=== PATIENT | female | born 1990 | race Two or more races ===

== ENCOUNTER → 2021-05-16 | Outpatient (BNVA) | payer MEDICAID, SELFPAY | END | disposition home or self-care (01) | PROVIDERS: PCP Internal Medicine; Visit Provider Urology | DX: I10 Essential (primary) hypertension (principal) ==

== ENCOUNTER → 2024-11-23 | Outpatient (CLI) | payer MEDICAID, SELFPAY ==
--- NOTE | 2024-11-23 14:19 | XR_ITS ---
Examination: Shoulder,right, 3 views Technique: Shoulder AP internal rotation, AP external rotation, Y view shoulder, 3 views Exam date and time :November 23, 2024 1443 hours INDICATIONS: Right shoulder pain post injury 2 days ago. FINDINGS: No right shoulder fracture or dislocation No AC joint separation No opaque foreign body IMPRESSION: No shoulder fracture or dislocation
--- NOTE | 2024-11-23 14:19 | XR_ITS ---
Examination: Hand, right 3 views Technique: Hand AP, oblique, lateral 3 views Date and time of exam: November 23, 2024 1443 hours INDICATIONS: Injury to the hand 2 days ago with hand pain. FINDINGS: No acute fracture No dislocation No opaque colon body IMPRESSION: No acute fracture
== END | disposition home or self-care (01) ==
PROVIDERS: PCP Physician Assistant Medical; Referring Provider Physician Assistant Medical; Visit Provider Physician Assistant Medical
DX: S69.91XA Unspecified injury of right wrist, hand and finger(s), initial encounter (principal); X58.XXXA Exposure to other specified factors, initial encounter
CPT/HCPCS: 73030; 73130

== ENCOUNTER 2025-05-12 21:10 | Emergency (ER) | payer MEDICAID, SELFPAY ==
[2025-05-12 21:12] VITALS: BMI 52.0
[2025-05-12 22:06] VITALS: BP 128/83; PULSE 84; RESP 18; TEMP 36.9; O2SAT 97
--- NOTE | 2025-05-12 22:06 | EDRME_ITS ---
Rapid Medical Screening Exam RME Arrival date/time: 05/12/25 21:10 Chief Complaint: Abdominal Pain Time Seen by Provider: 05/12/25 21:30 Vital signs: Vital Signs Temperature 98.4 F 05/12/25 22:06 Pulse Rate 84 05/12/25 22:06 Respiratory Rate 18 05/12/25 22:06 Blood Pressure 128/83 05/12/25 22:06 Pulse Oximetry (%) 97 05/12/25 22:06 Oxygen Delivery Method Room Air 05/12/25 22:06 [facility] Narrative: n/v, epigastric pain since yesterday. hx gastric sleeve 2 weeks ago, surgery in [place].
[2025-05-12 22:19] LABS: Basophils # (Auto) 0.1 Thou/mm3 (0.0-0.2); Basophils % (Auto) 1 % (0-2.5); Eosinophils # (Auto) 0.6 Thou/mm3 (0.0-0.5); Eosinophils % (Auto) 8 % (0-10); Hematocrit 37.8 % (36.0-46.0); Hemoglobin 13.6 g/dL (12.0-16.0); Immature Granulocytes % (Auto) 0 % (0-0); Immature Granulocytes Auto 0.01 Thou/mm3 (0.00-0.00); Lymphocytes # (Auto) 2.9 Thou/mm3 (1.0-4.8); Lymphocytes % (Auto) 35 % (10-50); Mean Corpuscular Hemoglobin 29.6 pg (25.0-35.0); Mean Corpuscular Volume 82 fL (80-100); Monocytes # (Auto) 0.6 Thou/mm3 (0.0-0.8); Monocytes % (Auto) 7 % (0-12); Neutrophils % (Auto) 49 % (37-80); Nucleated Red Blood Cell % 0 /100 WBC (0); Platelet Count 311 Thou/mm3 (140-440); RDW Standard Deviation 38.8 fL (36.4-46.3); Red Blood Count 4.59 Miln/mm3 (4.00-5.20); White Blood Count 8.1 Thou/mm3 (3.6-11.0)
[2025-05-12] MEDS: ONDANSETRON ODT 4 MG TABRAP PO (22:24)
--- NOTE | 2025-05-12 22:29 | XR_ITS ---
Examination: CT abdomen with intravenous contrast CT pelvis with intravenous contrast 2-D coronal reconstructions 2-D sagittal reconstructions Date and time of exam:May 13, 2025, 0158 hours Comparison May 21, 2024 INDICATIONS: Onset epigastric pain today. CTDI: vol (mGy) 26 DLP: (mGycm) 1565 Technique: Multiple axial sections of the abdomen and pelvis have been obtained. 64 slice high-resolution scanner used. 3 mm axial sections have been obtained, post intravenous injection 60 cc Isovue 370 2-D sagittal, coronal reconstructions obtained. Low dose protocols were performed. One or more of the following dose reduction techniques were used; automated exposure control, adjustment of the mA and/or KV according to patient size, use of iterative reconstruction technique. Findings: No focal liver or splenic lesion Absent gallbladder Gastric surgery No pancreatic or adrenal mass No renal or ureteral calculi, no hydronephrosis No bowel obstruction Absent appendix Complex right adnexal cystic mass with some septation and internal echoes, measuring at least 5 cm in dimension Contracted urinary bladder IMPRESSION: Complex right adnexal cystic mass with septation and internal echoes, recommend pelvic sonography follow-up
[2025-05-12 22:40] LABS: Collection Type, Urine Clean Catch
[2025-05-12 22:44] LABS: Alanine Aminotransferase 41 U/L (10-49); Albumin, Serum 4.8 gm/dL (3.5-5.0); Albumin/Globulin Ratio 1.8 (1.2-2.2); Alkaline Phosphatase 90 U/L (46-116); Anion Gap 7 (7-16); Aspartate Amino Transferase 29 U/L (0-34); BUN/Creatinine Ratio 11 Ratio (12-20); Bilirubin,Total 0.4 mg/dL (0.3-1.2); Blood Urea Nitrogen 9 mg/dL (9-23); Calcium 10.1 mg/dL (8.3-10.6); Calcium (Corrected) 10.1 mg/dL (8.5-10.1); Carbon Dioxide 26.6 mMol/L (20.0-31.0); Chloride 104 mMol/L (98-107); Creatinine (Component) 0.8 mg/dL (0.6-1.3); Estimated Creatinine Clearance 125.2 mL/min (>60); Globulin 2.7 gm/dL (2.3-3.5); Glucose 94 mg/dL (74-106); Lipase 52 U/L (12-53); Osmolality,Calculated 274 (275-295); Potassium 3.4 mMol/L (3.4-5.1); Sodium 138 mMol/L (136-145); Total Protein 7.5 gm/dL (5.7-8.2); eGFR > 60 See Note
[2025-05-12 22:49] LABS: HCG Qualitative,Urine Negative
[2025-05-12 23:00] LABS: Bilirubin,Urine 1+ (Negative); Blood,Urine Trace (Negative); Calcium Oxalate Crystals,Urine 4+; Clarity,Urine Turbid (Clear/Hazy); Color,Urine Yellow (Lt Yel-Yel); Glucose, Urine Negative (Negative); Ketones,Urine 1+ (Negative); Leukocyte Esterase,Urine Positive (Negative); Nitrite,Urine Negative (Negative); Protein,Urine 1+ (Neg - Trace); RBC,Urine 15 /hpf (0-3); Specific Gravity,Urine 1.034 (1.001-1.035); Squamous Epithelial Cell,Urine 74 /hpf (0-5); WBC,Urine 20 /hpf (0-5)
--- NOTE | 2025-05-13 03:10 | PRELIM_ITS ---
CT scan of the abdomen and pelvis with intravenous contrast (axial sections with sagittal and coronal reformats) May 13, 2025 0158 hours Clinical History: Epigastric pain Comparison: No prior study available for comparison at the time of interpretation. Findings: There is mild fatty infiltration of the liver. The gallbladder is surgically absent. The spleen, adrenals and pancreas are unremarkable. There is no peripancreatic collection. There is no hydronephrosis. Gastric sleeve surgery changes are noted. There is mild fat stranding along the surgical sleeve without loculated fluid collection. There is no bowel obstruction. The appendix is surgically absent. There are occasional colonic diverticula without evidence of diverticulitis. The urinary bladder is partially distended and shows mild wall thickening; possibility of cystitis cannot be excluded. The uterus is unremarkable. There is a complex tubular cystic structure in the right adnexa, measuring 2.5 cm in maximum thickness. Small left ovarian follicles are seen. There is a trace free fluid in the pelvis. No definite free air. The aorta is unremarkable. Mild/early degenerative changes are seen in the spine. Mild heterogeneous attenuation is seen in the visualized lung bases. A few small subpleural nodular infiltrates are seen at the left lung base (axial image 35/278). Please note that evaluation of bowel loops is limited due to absence of oral contrast. Impression: 1. No evidence of acute pancreatitis. 2. Gastric sleeve surgery with mild fat stranding along the sleeve without loculated fluid collection. 3. Complex tubular right adnexal cystic structure, which may represent hydrosalpinx or complex cyst. Recommended clinical correlation and further evaluation with ultrasound has indicated. 4. Partially distended urinary bladder with mild wall thickening; possibility of cystitis cannot be excluded. 5. Other findings as described above. Suggest clinical correlation and follow up accordingly. Report Electronically Signed By: Warren Ford 05/13/2025 3:10:33 AM [EST]
--- NOTE | 2025-05-13 04:02 | PD.EDABDPN ---
ED Abdominal Pain RME/HPI General Chief Complaint: Abdominal Pain Stated complaint: EPIGASTRIC PAIN Time seen by provider: 05/12/25 21:30 Arrival date/time: 05/12/25 21:10 RME / HPI RME / HPI narrative: n/v, epigastric pain since yesterday. hx gastric sleeve 2 weeks ago, surgery in [place]. DR ASTUDILLO MAIN ED EVALUATION: 34 y/o female with Hx of Gall Bladder Disease, Gastroesophageal Reflux Disease, Kidney Stones and Obesity presents to ED c/o constant epigastric abdominal pain that radiates to the back, nausea, and vomiting x 2 days. Vomit is green and was told it may be bile. She reports the pain is similar to that of heartburn but much worse. Patient had a gastric sleeve surgery 2 weeks ago. She just completed her antibiotics on Wednesday, but is having issues keeping down the Tylenol and Omeprazole. Patient denies fever or any other associated symptoms or aggravating factors. No modifying factors, no radiation, no migration. No pain reported overall. Related Data Home Medications ?Medication ?Instructions ?Recorded ?Confirmed semaglutide 1 mg/dose (4 mg/3 mL) 1 mg subcut QWEEK 08/26/23 08/26/23 subcutaneous pen injector (Ozempic) Previous Rx's ?Medication ?Instructions ?Recorded hydrocodone 5 mg-acetaminophen 325 1 tab PO Q6H PRN pain #20 tabs 05/22/24 mg tablet ibuprofen 800 mg tablet 800 mg PO TID PRN pain #30 tabs 07/20/24 ondansetron 4 mg disintegrating 4 mg PO Q8H PRN nausea and 05/13/25 tablet vomiting #14 tabs sucralfate 100 mg/mL oral 10 ml PO TID PRN acid reflux #473 05/13/25 suspension (Carafate) mL Allergies Allergy/AdvReac Type Severity Reaction Status Date / Time cephalexin AdvReac Intermediate Anaphylaxis Verified 05/12/25 21:11 Review of Systems Review of Systems Systems Reviewed: All systems reviewed, normal except as documented Past Medical History Past Medical History NEUROLOGIC: Positive Neurological Disorders and Migraine CARDIAC: Positive Cardiac Disorders and Hypertension GASTROINTESTINAL: Positive Gastrointestinal Disorders, Gall Bladder Disease, Gastroesophageal Reflux Disease and Obesity GENITOURINARY: Positive Genitourinary Disorders and Kidney Stones REPRODUCTIVE: Positive Previous Pregnancies MUSCULOSKELETAL: Positive Musculoskeletal Disorders and Degenerative Disk Disease ENDOCRINE: Positive Endocrine Disorders and Diabetes Mellitus Type 2 HEMATOLOGIC: Positive Anemia PSYCHO/SOCIAL: Positive Anxiety OTHER HISTORY: Positive Hospitalization and Chicken Pox Family History FAMILY HISTORY: Positive Family Cardiac Disorders and Family Surgery Surgical History SURGICAL: Positive Tubal Ligation ED Exam Narrative Physical exam: GENERAL APPEARANCE: alert and oriented x 4, well-developed, well-nourished, no acute distress VITALS: All vitals were reviewed and the pulse ox is 97% on room air, which is normal according to my interpretation. HEENT: Normocephalic, atraumatic; pupils equal, round, reactive to light; EOMI; mucous membranes pink, moist; oropharynx clear NECK: Supple LUNGS: CTABL; no wheezes, no rales, no rhonchi HEART: Regular rate, regular rhythm; normal S1, S2; no murmurs ABDOMEN: non distended; normal BS; soft, mild epigastric tenderness, no guarding, no rebound; no masses, no organomegaly, no hernia BACK: no CVA tenderness EXTREMITIES: atraumatic; no edema NEUROLOGIC: awake; alert and oriented x4; cranial nerves II-XII grossly intact; no focal sensory or motor deficits PSYCHIATRIC: appropriate mood and affect SKIN: warm, dry, normal color; no rashes Course Quality Measures none Orders Category Date Time Status CT Screening NOW Care 05/12/25 22:[address] abdomen pelvis w con Stat Exams 05/12/25 22:29 Taken CBC Stat Lab 05/12/25 22:13 Completed CMP [Comprehensive Metabolic Panel] Stat Lab 05/12/25 22:13 Completed HCG Qualitative,Urine Stat Lab 05/12/25 22:18 Completed Lipase Stat Lab 05/12/25 22:13 Completed UA [Urinalysis] Stat Lab 05/12/25 22:18 Completed Lidocaine 2% Viscous [Xylocaine 2% Viscous] Med 05/13/25 03:30 Discontinued 15 ml PO X1 ONE Ondansetron Odt [Zofran Odt] Med 05/12/25 22:05 Discontinued 4 mg PO X1 ONE Ondansetron Odt [Zofran Odt] Med 05/13/25 03:30 Discontinued 4 mg PO X1 ONE mg Hyd/Al Hyd/Bartolome Susp [Maalox Susp] Med 05/13/25 03:30 Discontinued 30 ml PO X1 ONE Vital Signs Vital signs: Vital Signs Temperature 98.4 F 05/12/25 22:06 Pulse Rate 84 05/12/25 22:06 Respiratory Rate 18 05/12/25 22:06 Blood Pressure 128/83 05/12/25 22:06 Pulse Oximetry (%) 97 05/12/25 22:06 Oxygen Delivery Method Room Air 05/12/25 22:06 Abdominal Pain MDM MDM Narrative MDM Narrative:: Scribe Attestation: Collette Franco, joshua scribing for and in the presence of Dr. Astudillo. Provider Notation: Although this document has been carefully reviewed, there may still be some phonetic and other typographical errors.? These errors are purely grammatical due to imperfections in the software program and should not be construed in any way to? compromise the substance of the patient's medical care during this visit. Patient data External records reviewed:: [facility] previous records (Reviewed prior ED records from 07/20/24. Patient was seen for Pelvic pain.) Clinical information provided by:: patient Social determinants that could affect healthcare access:: none Patient has the following chronic illnesses:: Migraine, Hypertension, Gall Bladder Disease, Gastroesophageal Reflux Disease, Obesity, Kidney Stones, Degenerative Disk Disease, Diabetes Mellitus Type 2, Anemia, Anxiety How is presenting disease/condition affected by chronic disease/condition?: exacerbated by Evaluation data The following diagnostics were reviewed and interpreted by me:: lab results and radiology exam(s) Lab and/or radiology exams considered but not ordered:: None Interpretation Summary: RADIOLOGY Abdomen/Pelvis CT: [facility] [address] [place] [address] [employer] Preliminary Report Draft Patient: AKHIL JAFFE. Record#: [id number] Birthdate: 1990 Age/Sex: 34 / F Location: [facility] Attending Dr: Ordering Physician: Date of Service: Procedure(s): Accession Number(s): CT scan of the abdomen and pelvis with intravenous contrast (axial sections with sagittal and coronal reformats) May 13, 2025 0158 hours Clinical History: Epigastric pain Comparison: No prior study available for comparison at the time of interpretation. Findings: There is mild fatty infiltration of the liver. The gallbladder is surgically absent. The spleen, adrenals and pancreas are unremarkable. There is no peripancreatic collection. There is no hydronephrosis. Gastric sleeve surgery changes are noted. There is mild fat stranding along the surgical sleeve without loculated fluid collection. There is no bowel obstruction. The appendix is surgically absent. There are occasional colonic diverticula without evidence of diverticulitis. The urinary bladder is partially distended and shows mild wall thickening; possibility of cystitis cannot be excluded. The uterus is unremarkable. There is a complex tubular cystic structure in the right adnexa, measuring 2.5 cm in maximum thickness. Small left ovarian follicles are seen. There is a trace free fluid in the pelvis. No definite free air. The aorta is unremarkable. Mild/early degenerative changes are seen in the spine. Mild heterogeneous attenuation is seen in the visualized lung bases. A few small subpleural nodular infiltrates are seen at the left lung base (axial image 35/278). Please note that evaluation of bowel loops is limited due to absence of oral contrast. Impression: 1. No evidence of acute pancreatitis. 2. Gastric sleeve surgery with mild fat stranding along the sleeve without loculated fluid collection. 3. Complex tubular right adnexal cystic structure, which may represent hydrosalpinx or complex cyst. Recommended clinical correlation and further evaluation with ultrasound has indicated. 4. Partially distended urinary bladder with mild wall thickening; possibility of cystitis cannot be excluded. 5. Other findings as described above. Suggest clinical correlation and follow up accordingly. Report Electronically Signed By: Warren Ford 05/13/2025 3:10:33 AM [EST] Medications / Prescriptions Medications or Prescriptions considered but not ordered:: None Medication administrations:: Medication Administration History Discontinued Medications Al Hydrox/Mg Hydrox/Simethicone (Mg Hyd/Al Hyd/Bartolome (Maalox Reg) Susp 30 Ml Udc) 30 ml PO X1 ONE Stop: 05/13/25 03:31 Last Admin: 05/13/25 04:08 Dose: 30 ml Documented By: CVL Lidocaine HCl (Lidocaine Viscous 2% 15 Ml Udc) 15 ml PO X1 ONE Stop: 05/13/25 03:31 Last Admin: 05/13/25 04:08 Dose: 15 ml Documented By: CVL Ondansetron HCl (Ondansetron Odt 4 Mg Tabrap) 4 mg PO X1 ONE; Protocol Stop: 05/12/25 22:06 Last Admin: 05/12/25 22:24 Dose: 4 mg Documented By: CVL Ondansetron HCl (Ondansetron Odt 4 Mg Tabrap) 4 mg PO X1 ONE; Protocol Stop: 05/13/25 03:31 Last Admin: 05/13/25 04:08 Dose: 4 mg Documented By: CVL See above Consultations Consultation(s) initiated? (list below): No Diagnosis Differential diagnosis abdominal pain: abdominal pain, calculus of kidney, constipation, diverticulitis, gastroenteritis, pancreatitis and small bowel obstruction Most likely diagnosis given after review of the tests above:: GERD Admission Indicated Admission indicated?: not indicated Explain why admission is indicated or not indicated:: Patient does not meet admission criteria. Admission Request Was there a request for admission?: No Disposition Plan Disposition Plan: Discharge Discharge Attestation Discharge Attestation: The patient and all family members were given an opportunity to ask questions and understood the discharge instructions. Discharge instructions specifically effects, indications for sooner follow up or return to the emergency department, and the expected course of current diagnosis. Patient condition: Stable Discharge Plan Plan Patient Disposition: HOME (Self Care) Prescriptions/Referrals Prescriptions/Med Rec: New sucralfate [Carafate] 100 mg/mL suspension 10 ml PO TID PRN (Reason: acid reflux) Qty: 473 0RF ondansetron 4 mg tablet,disintegrating 4 mg PO Q8H PRN (Reason: nausea and vomiting) Qty: 14 0RF No Action hydrocodone-acetaminophen 5-325 mg tablet 1 tab PO Q6H MDD 4 PRN (Reason: pain) Qty: 20 0RF Ozempic 1 mg/dose (4 mg/3 mL) Pen Injector 1 mg SUBCUT QWEEK ibuprofen 800 mg tablet 800 mg PO TID PRN (Reason: pain) Qty: 30 0RF Referrals: Heather Guerin FNP [Primary Care Provider] - In 1 week Problem List Clinical Impression: Gastro-esophageal reflux Patient/Caregiver Discharge Instructions Education Materials: ED GERD (Adult) Print Language: German Stand Alone Forms: Rachel Award Info., Patient Portal Info Letter
[2025-05-13] MEDS: MG HYD/AL HYD/SIME (Maalox Reg) SUSP 30 ML UDC PO (04:08)
[2025-05-13] MEDS: ONDANSETRON ODT 4 MG TABRAP PO (04:08)
[2025-05-13] MEDS: LIDOCAINE VISCOUS 2% 15 ML UDC PO (04:08)
[2025-05-13 04:29] VITALS: RESP 16
== END 2025-05-13 04:30 | disposition home or self-care (01) ==
PROVIDERS: Physician Assistant; Emergency Provider Emergency Medicine; PCP Nurse Practitioner
DX: K21.9 Gastro-esophageal reflux disease without esophagitis (principal); N32.89 Other specified disorders of bladder; N83.201 Unspecified ovarian cyst, right side; Z68.43 Body mass index [BMI] 50.0-59.9, adult; E66.9 Obesity, unspecified
CPT/HCPCS: 36415; 74177; 80053; 81001; 81025; 83690; 85025; 99285; A4649; J3490; Q0162; Q9967; A9270

== ENCOUNTER 2025-07-03 08:39 | Emergency (ER) | payer MEDICAID, SELFPAY ==
--- NOTE | 2025-07-03 08:59 | XR_ITS ---
Examination: Pelvic ultrasound, transabdominal, complete Technique: Transabdominal ultrasound of the pelvis performed using grayscale imaging Date and time of exam: July 03, 2025 1003 hours INDICATIONS: Right lower abdominal pain beginning 2 days ago FINDINGS: Uterus 8.6 cm, small cyst which may represent a gestational sac 1.3 cm in the endometrium corresponding to 6 weeks 1 day gestational age No pole, no cardiac activity Right ovary 3.6 cm arterial flow Left ovary 2.3 cm arterial flow IMPRESSION: Recommend transvaginal pelvic sonography follow-up to confirm intrauterine gestational sac and assess for pole
[2025-07-03 09:05] VITALS: BP 123/72; PULSE 66; RESP 18; TEMP 36.6; O2SAT 97; BMI 47.6
--- NOTE | 2025-07-03 09:07 | PD.EDABDPN ---
ED Abdominal Pain RME/HPI General Chief Complaint: Abdominal Pain Stated complaint: Right side abdominal pain, nausea Time seen by provider: 07/03/25 08:48 Arrival date/time: 07/03/25 08:39 34-year-old female presents to the Emergency Department today for complaint of right sided pelvic pain patient worse going on for last couple of days patient reports history of ovarian cyst cholecystectomy gastric bypass Limitations: no limitations Related Data Home Medications ?Medication ?Instructions ?Recorded ?Confirmed semaglutide 1 mg/dose (4 mg/3 mL) 1 mg subcut QWEEK 08/26/23 08/26/23 subcutaneous pen injector (Ozempic) Previous Rx's ?Medication ?Instructions ?Recorded hydrocodone 5 mg-acetaminophen 325 1 tab PO Q6H PRN pain #20 tabs 05/22/24 mg tablet ibuprofen 800 mg tablet 800 mg PO TID PRN pain #30 tabs 07/20/24 ondansetron 4 mg disintegrating 4 mg PO Q8H PRN nausea and 05/13/25 tablet vomiting #14 tabs sucralfate 100 mg/mL oral 10 ml PO TID PRN acid reflux #473 05/13/25 suspension (Carafate) mL ciprofloxacin HCl 500 mg tablet 500 mg PO BID 7 days #14 tabs 07/03/25 hydrocodone 5 mg-acetaminophen 325 1 tab PO BID PRN pain #10 tabs 07/03/25 mg tablet Allergies Allergy/AdvReac Type Severity Reaction Status Date / Time cephalexin AdvReac Intermediate Anaphylaxis Verified 07/03/25 08:44 Review of Systems Review of Systems Systems Reviewed: All systems reviewed, normal except as documented Constitutional Constitutional: Reports system reviewed and no additional complaints, except as documented, Denies fever(s) and Denies headache(s) Eyes Eyes: Reports system reviewed and no additional complaints, except as documented and Denies blurry vision ENT Ears, Nose, Mouth, and Throat: Reports system reviewed and no additional complaints, except as documented, Denies headache(s), Denies nasal congestion and Denies nasal discharge Cardiovascular Cardiovascular: Reports system reviewed and no additional complaints, except as documented, Denies chest pain and Denies dyspnea Respiratory Respiratory: Reports system reviewed and no additional complaints, except as documented, Denies chest congestion, Denies cough and Denies dyspnea Gastrointestinal Gastrointestinal: Reports system reviewed and no additional complaints, except as documented and Denies abdominal pain Genitourinary Genitourinary: Reports system reviewed and no additional complaints, except as documented and Reports other (Right side pelvic pain) Integumentary/Breasts Skin/Breast: Reports system reviewed and no additional complaints, except as documented and Denies rash Neurologic Neurologic: Reports system reviewed and no additional complaints, except as documented, Reports as per HPI and Denies headache(s) Past Medical History Past Medical History NEUROLOGIC: Positive Neurological Disorders and Migraine; Negative Cerebrovascular Accident, Transient Ischemic Attacks (TIA), Dementia, Alzheimer's Disease, Parkinson's Disease, Brain Tumor, Meningitis, Seizures, Epilepsy, Multiple Sclerosis, Cerebral Palsy, Amyotrophic Lateral Sclerosis (ALS/Gisela Gehrig's), Guillain-[place] Syndrome, Spina Bifida, Paralysis, Peripheral Neuropathy, Doss's Palsy, Subdural Hematoma, Head Trauma, Spinal Cord Injury or Traumatic Brain Injury CARDIAC: Positive Cardiac Disorders and Hypertension; Negative Myocardial Infarction, Cardiac Arrhythmia, Atrial Fibrillation, Angina, Heart Murmur, Coronary Artery Disease, Atherosclerotic Heart Disease, Peripheral Vascular Disease, Hypercholesterolemia, Aneurysm, Congestive Heart Failure, Congenital Heart Disease, Valvular Heart Disease, Rheumatic Fever, Cardiomyopathy, Edema, Pericarditis, Cellulitis, Deep Vein Thrombosis, Hypotension or Varicose Veins RESPIRATORY: Negative Chronic Obstructive Pulmonary Disease (COPD), Asthma, Bronchitis, Emphysema, Pneumonia, Pulmonary Fibrosis, Cystic Fibrosis, Tuberculosis, Pulmonary Embolism, Pulmonary Edema or Sleep Apnea GASTROINTESTINAL: Positive Gastrointestinal Disorders, Gall Bladder Disease, Gastroesophageal Reflux Disease and Obesity; Negative Hepatitis, Cirrhosis, Pancreatitis, Celiac Disease, Gastrointestinal Bleed, Esophageal Varices, Womack's Esophagus, Colitis, Ulcerative Colitis, Diverticulitis, Diverticulosis, Ulcer, Colorectal Cancer, Irritable Bowel, Crohn's Disease, Obstructive Bowel, Hiatal Hernia or Hemorrhoids GENITOURINARY: Positive Genitourinary Disorders and Kidney Stones; Negative Renal Disease, Polycystic Kidney Disease, Neurogenic Bladder, Inguinal Hernia, Dialysis, Prostate Cancer or Benign Prostatic Hyperplasia REPRODUCTIVE: Positive Previous Pregnancies; Negative Breast Cancer, Endometriosis, Genital Herpes, Gonorrhea, Pelvic Inflammatory Disease, Syphilis, Testicular Cancer or Uterine Prolapse MUSCULOSKELETAL: Positive Musculoskeletal Disorders and Degenerative Disk Disease; Negative Muscular Dystrophy, Myasthenia Gravis, Marfan's Syndrome, Bone Cancer, Arthritis, Rheumatoid Arthritis, Osteoporosis, Gout, Scoliosis, Carpal Tunnel Syndrome, Fibromyalgia, Fractures, Degenerative Joint Disease, Osteomyelitis or Poliovirus ENT: Negative Cataracts, Glaucoma, Blind, Retinal Detachment, Macular Degeneration, Ear Infection, Deafness, Head Trauma or Eye Prosthesis ENDOCRINE: Positive Endocrine Disorders and Diabetes Mellitus Type 2; Negative Diabetes Mellitus Type 1, Hypoglycemia, Reginald's Disease, Hyperthyroidism, Hypothyroidism, Parathyroid Disease, Pituitary Disease, Systemic Lupus Erythematosus, Syndrome of Inappropriate Antidiuretic Hormone (SIADH), Adrenal Disease or Graves' Disease HEMATOLOGIC: Positive Anemia; Negative Blood Disorders, Leukemia, Hemophilia, Thalassemia, Sickle Cell Disease or Clotting Problems PSYCHO/SOCIAL: Positive Anxiety; Negative Psychiatric Problems, Schizophrenia, Recreational Drug Use, Bipolar Disorder, Depression, Behavior Problems, Self-Mutilation, Attention Deficit Disorder, Attention Deficit Hyperactivity Disorder, Depression, Post Traumatic Stress Disorder or Eating Disorder OTHER HISTORY: Positive Hospitalization and Chicken Pox; Negative Autoimmune Disease, Down Syndrome, Autism, Developmental Delay, Shingles, Falls, Blood Transfusions, Blood Transfusion Reaction, Anesthesia Reactions, Organ Transplant, Chemotherapy, Radiation Therapy, Hyperbaric Therapy, MRSA, VRSA, Vancomycin-Resistant Enterococci, Human Immunodeficiency Virus (HIV), Measles, Mumps, Rubella ([place] Measles), Pertussis, Clostridium Difficile, Cancer, Breast Cancer, Cervical Cancer, Colorectal Cancer, Lung Cancer, Ovarian Cancer, Prostate Cancer or Testicular Cancer Family History FAMILY HISTORY: Positive Family Cardiac Disorders and Family Surgery; Negative Family Psychiatric Problems, Family Respiratory Disorders, Family Gastrointestinal Problems, Family Cancer or Family Anesthesia Reaction Surgical History SURGICAL: Positive Abdominal Surgery and Tubal Ligation; Negative Cardiac Surgery, Open Heart Surgery, Coronary Artery Bypass Graft, Valve Replacement, Vascular Surgery, Coronary Stent, Cardiac Catheterization, Pacemaker, Angiogram, Auto Implanted Cardiovert Defib, Carotid Endarterectomy, Endocrine Surgery, Thyroidectomy, Ear Surgery, Tympanostomy Tube, Eye Surgery, Nose Surgery, Oral Surgery, Tonsillectomy, Adenoidectomy, Cochlear Implant, Corneal Transplant, Throat Surgery, Tracheostomy, Gastric Bypass Surgery, Gastrostomy, Bowel Surgery, Nephrectomy, Transurethral Resection, Joint Replacement, Amputation, Open Reduction Internal Fixation, Arthroscopy, Neurologic Surgery, Brain Shunt, Mastectomy, Lumpectomy, Hysterectomy, Section, Vasectomy or Organ Transplant Social History SMOKING STATUS: Never smoker SECOND HAND EXPOSURE: No SUBSTANCE USE: does not use ED Exam General Limitations: Present no limitations General appearance: Present alert and in no apparent distress Head Head exam: Present atraumatic, normocephalic and normal inspection Eye Eye exam: Present normal appearance, PERRL and EOMI; Absent conjunctival injection ENT ENT exam: Present normal exam, normal oropharynx and mucous membranes moist Neck Neck exam: Present normal inspection, full ROM and trachea midline Chest Chest inspection: Present normal inspection and symmetric chest wall rise Respiratory Respiratory exam: Present normal lung sounds bilaterally Cardiovascular Cardiovascular exam: Present regular rate, normal rhythm and normal heart sounds Abdominal Exam Abdominal exam: Present soft and normal bowel sounds; Absent distention, tenderness, guarding, rebound or rigidity Abdominal tenderness: Absent RLQ Extremities Exam Extremities exam: Present normal inspection and full ROM Back Exam Back exam: Present normal inspection and full ROM Neurological Exam Neurological exam: Present alert, oriented X3 and CN II-XII intact Psychiatric Psychiatric exam: Present normal affect and normal mood Skin Skin exam: Present warm, dry, intact and normal color Course Quality Measures none Orders Category Date Time Status US pelvic complete Stat Exams 07/03/25 08:59 Completed US transvaginal Stat Exams 07/03/25 12:42 Completed CBC Stat Lab 07/03/25 09:11 Completed Comprehensive Metabolic Panel Stat Lab 07/03/25 09:11 Completed HCG Qualitative,Urine Stat Lab 07/03/25 10:28 Completed HCG,Qualitative Serum Stat Lab 07/03/25 09:11 Completed Lipase Stat Lab 07/03/25 09:11 Completed UA, C/S IF [Urinalysis, C/S if Indicated] Stat Lab 07/03/25 10:28 Completed HYDROcodone*/APAP 5/325 [[place] 5/325] Med 07/03/25 13:05 Discontinued 1 tab PO X1 ONE Ketorolac Inj [Toradol Inj] Med 07/03/25 15:40 Discontinued 30 mg IM X1 ONE Vital Signs Vital signs: Vital Signs Temperature 97.9 F 07/03/25 09:05 Pulse Rate 66 07/03/25 09:05 Respiratory Rate 18 07/03/25 09:05 Blood Pressure 123/72 07/03/25 09:05 Pulse Oximetry (%) 97 07/03/25 09:05 Oxygen Delivery Method Room Air 07/03/25 09:05 O2 saturation 97% r.a wnl Abdominal Pain MDM MDM Narrative MDM Narrative:: 34-year-old female presents to the Emergency Department today for complaint of right sided pelvic pain patient worse going on for last couple of days patient reports history of ovarian cyst cholecystectomy gastric bypass On exam patient well-appearing patient does not appear ill or toxic no acute distress Exam patient is soft nontender abdomen On exam patient does have mild tenderness to the right pelvic region Lab work and imaging obtained Ultrasound reviewed I discussed the ultrasound findings with Dr. [place] CREDIT CHARGE AUTHORIZER who felt the patient be discharged home on an outpatient basis Patient has 2 negative hCG levels here Patient discharged home in no distress to follow-up with primary care doctor in the next 24 to 48 hours and for any worsening symptoms to return to the ER immediately Patient data External records reviewed:: [facility] previous records Clinical information provided by:: patient Social determinants that could affect healthcare access:: none Patient has the following chronic illnesses:: none How is presenting disease/condition affected by chronic disease/condition?: no chronic disease Evaluation data The following diagnostics were reviewed and interpreted by me:: lab results and radiology exam(s) Lab and/or radiology exams considered but not ordered:: Labs and radiology obtained Interpretation Summary: Reviewed by me Medications / Prescriptions Medications or Prescriptions considered but not ordered:: Given Medication administrations:: Medication Administration History Discontinued Medications Hydrocodone Bitart/Acetaminophen (Hydrocodone/[place] 5/325 Tablet) 1 tab PO X1 ONE Stop: 07/03/25 13:06 Last Admin: 07/03/25 15:29 Dose: 1 tab Documented By: Ketorolac Tromethamine (Ketorolac Inj 30 Mg/Ml Vial) 30 mg IM X1 ONE Stop: 07/03/25 15:41 Last Admin: 07/03/25 15:59 Dose: 30 mg Documented By: Given Consultations Consultation(s) initiated? (list below): Yes Consultation #1 (Physician, Specialty, Details): Dr. Wilson Diagnosis Differential diagnosis abdominal pain: abdominal pain, acute appendicitis, pancreatitis and small bowel obstruction Most likely diagnosis given after review of the tests above:: Pelvic pain ovarian cyst Admission Indicated Admission indicated?: not indicated Admission Request Was there a request for admission?: No Disposition Plan Disposition Plan: Discharge Discharge Attestation Discharge Attestation: The patient and all family members were given an opportunity to ask questions and understood the discharge instructions. Discharge instructions specifically effects, indications for sooner follow up or return to the emergency department, and the expected course of current diagnosis. Patient condition: Stable Discharge Plan Plan Patient Disposition: HOME (Self Care) Discharge Disposition comment: Stable Prescriptions/Referrals Prescriptions/Med Rec: New hydrocodone-acetaminophen 5-325 mg tablet 1 tab PO BID MDD 10 PRN (Reason: pain) Qty: 10 0RF ciprofloxacin HCl 500 mg tablet 500 mg PO BID 7 Days Qty: 14 0RF No Action hydrocodone-acetaminophen 5-325 mg tablet 1 tab PO Q6H MDD 4 PRN (Reason: pain) Qty: 20 0RF Ozempic 1 mg/dose (4 mg/3 mL) Pen Injector 1 mg SUBCUT QWEEK ibuprofen 800 mg tablet 800 mg PO TID PRN (Reason: pain) Qty: 30 0RF sucralfate [Carafate] 100 mg/mL suspension 10 ml PO TID PRN (Reason: acid reflux) Qty: 473 0RF ondansetron 4 mg tablet,disintegrating 4 mg PO Q8H PRN (Reason: nausea and vomiting) Qty: 14 0RF Referrals: Heather Guerin FNP [Primary Care Provider] - 07/05/25 Problem List Clinical Impression: Pelvic pain, UTI (urinary tract infection) Patient/Caregiver Discharge Instructions Education Materials: Medicine for Pain Additional Instructions: Please follow-up with CREDIT CHARGE AUTHORIZER as discussed for worsening symptoms or concerns return immediately Print Language: Bhutanese Stand Alone Forms: Rachel Award Info., Patient Portal Info Letter PA/WOOD BLOCK ARTIST Supervising Physician GADIEL/KIMMY Supervising Physician: Dr. brooks
[2025-07-03 09:29] LABS: Basophils # (Auto) 0.0 Thou/mm3 (0.0-0.2); Basophils % (Auto) 0 % (0-2.5); Eosinophils # (Auto) 0.2 Thou/mm3 (0.0-0.5); Eosinophils % (Auto) 3 % (0-10); Hematocrit 40.1 % (36.0-46.0); Hemoglobin 13.6 g/dL (12.0-16.0); Immature Granulocytes Auto 0.02 Thou/mm3 (0.00-0.00); Lymphocytes # (Auto) 1.5 Thou/mm3 (1.0-4.8); Lymphocytes % (Auto) 26 % (10-50); Mean Corpuscular HGB Conc 33.9 g/dl (31.0-37.0); Mean Corpuscular Hemoglobin 29.8 pg (25.0-35.0); Mean Corpuscular Volume 88 fL (80-100); Monocytes # (Auto) 0.3 Thou/mm3 (0.0-0.8); Monocytes % (Auto) 6 % (0-12); Neutrophils # (Auto) 3.7 Thou/mm3 (1.8-7.7); Neutrophils % (Auto) 64 % (37-80); Nucleated Red Blood Cell # 0.00 Thou/mm3 (0.00-0.00); Nucleated Red Blood Cell % 0 /100 WBC (0); Platelet Count 252 Thou/mm3 (140-440); RDW Standard Deviation 42.9 fL (36.4-46.3); Red Blood Count 4.56 Miln/mm3 (4.00-5.20); White Blood Count 5.8 Thou/mm3 (3.6-11.0)
[2025-07-03 09:48] LABS: Alanine Aminotransferase 34 U/L (10-49); Albumin, Serum 4.7 gm/dL (3.5-5.0); Albumin/Globulin Ratio 1.8 (1.2-2.2); Alkaline Phosphatase 106 U/L (46-116); Anion Gap 9 (7-16); Aspartate Amino Transferase 29 U/L (0-34); BUN/Creatinine Ratio 8 Ratio (12-20); Bilirubin,Total 1.0 mg/dL (0.3-1.2); Blood Urea Nitrogen 5 mg/dL (9-23); Calcium 10.0 mg/dL (8.3-10.6); Calcium (Corrected) 10.0 mg/dL (8.5-10.1); Carbon Dioxide 25.2 mMol/L (20.0-31.0); Chloride 108 mMol/L (98-107); Creatinine (Component) 0.6 mg/dL (0.6-1.3); Estimated Creatinine Clearance 158.1 mL/min (>60); Globulin 2.6 gm/dL (2.3-3.5); Glucose 95 mg/dL (74-106); Lipase 25 U/L (12-53); Osmolality,Calculated 280 (275-295); Potassium 3.9 mMol/L (3.4-5.1); Sodium 142 mMol/L (136-145); Total Protein 7.3 gm/dL (5.7-8.2); eGFR > 60 See Note
[2025-07-03 10:44] LABS: Collection Type, Urine Clean Catch
[2025-07-03 10:51] LABS: HCG Qualitative,Urine Negative
[2025-07-03 10:57] LABS: Amorphous Crystals,Urine Present (Absent); Bacteria,Urine 1+; Bilirubin,Urine Negative (Negative); Blood,Urine 2+ (Negative); Color,Urine Yellow (Lt Yel-Yel); Culture Indicated,Urine Contaminated; Glucose, Urine Negative (Negative); Hyaline Casts,Urine < 1 /hpf (0-1); Ketones,Urine Negative (Negative); Leukocyte Esterase,Urine Positive (Negative); Nitrite,Urine Negative (Negative); PH,Urine 6.0 (5.0-7.0); Protein,Urine 1+ (Neg - Trace); RBC,Urine 6 /hpf (0-3); Specific Gravity,Urine 1.039 (1.001-1.035); Squamous Epithelial Cell,Urine 23 /hpf (0-5); Urobilinogen,Urine 2.0 mg/dL (0.0-1.0); WBC,Urine 49 /hpf (0-5)
[2025-07-03 11:21] LABS: Clarity,Urine Hazy (Clear/Hazy)
--- NOTE | 2025-07-03 12:42 | XR_ITS ---
Examination: Transvaginal ultrasound of the pelvis, complete Technique: Transvaginal sonographic images pelvis performed using varma scale imaging Exam date and time: July 03, 2025 1301 hours INDICATIONS: Pelvic pain right lower abdominal pain beginning 2 days ago, ultrasound July 03, 2025 1003 AM empty intrauterine gestational sac. FINDINGS: Uterus 7.7 cm, free fluid with debris is described by the technologist in the endometrium, I would favor intrauterine gestational sac measuring 10 mm Right ovary 2.9 cm arterial flow 19 mm cyst which may represent a corpus sodium cyst Left ovary 2.5 cm arterial flow 12 mm cyst with septation IMPRESSION: Findings remain suspicious for empty intrauterine gestational sac, recommend continued short-term follow-up transvaginal pelvic sonography
[2025-07-03 15:03] LABS: HCG,Qualitative Serum Negative
[2025-07-03] MEDS: HYDROcodone/APAP 5/325 TABLET 1 TAB PO (15:29)
[2025-07-03] MEDS: KETOROLAC INJ 30 MG/ML VIAL IM (15:59)
== END 2025-07-03 16:20 | disposition home or self-care (01) ==
PROVIDERS: Nurse Practitioner Primary Care; Emergency Provider Family Medicine; PCP Nurse Practitioner
DX: N39.0 Urinary tract infection, site not specified (principal); Z98.84 Bariatric surgery status
CPT/HCPCS: 36415; 76830; 76856; 80053; 81001; 81025; 83690; 84703; 85025; 96372; 99283; J1885; A9270

== ENCOUNTER 2025-07-05 02:26 | Inpatient (IN) | payer MEDICAID, SELFPAY ==
[2025-07-05] VITALS (9 sets, daily range): BP systolic 104–127; BP diastolic 56–90; PULSE 52–74; RESP 16–19; TEMP 36.2–36.6; O2SAT 95–97; BMI 47.6; BMI 48.5
--- NOTE | 2025-07-05 02:35 | PD.EDABDPN ---
ED Abdominal Pain RME/HPI General Chief Complaint: Abdominal Pain Stated complaint: Abdominal pain/Dx Cyst worsening pain Time seen by provider: 07/05/25 02:51 Arrival date/time: 07/05/25 02:26 RME / HPI RME / HPI narrative: See MDM for HPI documentation Related Data Home Medications ?Medication ?Instructions ?Recorded ?Confirmed semaglutide 1 mg/dose (4 mg/3 mL) 1 mg subcut QWEEK 08/26/23 07/05/25 subcutaneous pen injector (Ozempic) Previous Rx's ?Medication ?Instructions ?Recorded hydrocodone 5 mg-acetaminophen 325 1 tab PO Q6H PRN pain #20 tabs 05/22/24 mg tablet ibuprofen 800 mg tablet 800 mg PO TID PRN pain #30 tabs 07/20/24 ondansetron 4 mg disintegrating 4 mg PO Q8H PRN nausea and 05/13/25 tablet vomiting #14 tabs sucralfate 100 mg/mL oral 10 ml PO TID PRN acid reflux #473 05/13/25 suspension (Carafate) mL ciprofloxacin HCl 500 mg tablet 500 mg PO BID 7 days #14 tabs 07/03/25 hydrocodone 5 mg-acetaminophen 325 1 tab PO BID PRN pain #10 tabs 07/03/25 mg tablet acetaminophen 300 mg-codeine 30 mg 2 tab PO Q8H PRN pain #20 tabs 07/05/25 tablet ondansetron 4 mg disintegrating 4 mg PO TID PRN nausea and 07/05/25 tablet vomiting 30 days #10 tabs Allergies Allergy/AdvReac Type Severity Reaction Status Date / Time cephalexin AdvReac Intermediate Anaphylaxis Verified 07/03/25 08:44 Review of Systems Review of Systems Systems Reviewed: All systems reviewed, normal except as documented Past Medical History Past Medical History NEUROLOGIC: Positive Neurological Disorders and Migraine CARDIAC: Positive Cardiac Disorders and Hypertension GASTROINTESTINAL: Positive Gastrointestinal Disorders, Gall Bladder Disease, Gastroesophageal Reflux Disease and Obesity GENITOURINARY: Positive Genitourinary Disorders and Kidney Stones REPRODUCTIVE: Positive Previous Pregnancies MUSCULOSKELETAL: Positive Musculoskeletal Disorders and Degenerative Disk Disease ENDOCRINE: Positive Endocrine Disorders and Diabetes Mellitus Type 2 HEMATOLOGIC: Positive Anemia PSYCHO/SOCIAL: Positive Anxiety OTHER HISTORY: Positive Hospitalization and Chicken Pox Family History FAMILY HISTORY: Positive Family Cardiac Disorders and Family Surgery Surgical History SURGICAL: Positive Abdominal Surgery and Tubal Ligation ED Exam Narrative Physical exam: See MDM for physical exam documentation Course Quality Measures none Orders Category Date Time Status CT Screening NOW Care 07/05/25 02:40 Active Saline [Insert IV] NOW Care 07/05/25 02:38 Active Straight [In and Out Catheter] X1 Care 07/05/25 02:38 Active Consult to General Surgery Stat Cons 07/05/25 06:[address] pelvis w con Stat Exams 07/05/25 02:40 Completed US transvaginal Stat Exams 07/05/25 02:51 Completed Beta HCG,Quantitative Stat Lab 07/05/25 03:02 Completed Bilirubin,Direct Stat Lab 07/05/25 03:02 Completed Blood Culture (Lab) Stat Lab 07/05/25 08:25 Received CBC Stat Lab 07/05/25 03:02 Completed CMP [Comprehensive Metabolic Panel] Stat Lab 07/05/25 03:02 Completed Drug Screen,Urine Stat Lab 07/05/25 03:45 Completed Lipase Stat Lab 07/05/25 03:02 Completed Magnesium Stat Lab 07/05/25 03:02 Completed Rh Testing Only Stat Lab 07/05/25 03:02 Completed UA, C/S IF [Urinalysis, C/S if Indicated] Stat Lab 07/05/25 03:45 Completed Urine Culture Stat Lab 07/05/25 03:45 Received Ketorolac Inj [Toradol Inj] Med 07/05/25 02:38 Discontinued 30 mg IVP X1 ONE Meropenem Inj [Merrem Inj] 1,000 mg Med 07/05/25 06:06 Discontinued SODIUM CHLORIDE 0.9% (Popper) [Ns 0.9% (P)] 50 ml IV STAT Morphine Inj Med 07/05/25 06:36 Discontinued 4 mg IVP STAT STA Morphine Inj Med 07/05/25 02:38 Discontinued 6 mg IVP X1 ONE Ondansetron Inj [Zofran Inj] Med 07/05/25 02:38 Discontinued 4 mg IVP X1 ONE Sodium Chloride 0.9% 1000 ml [Ns] 1,000 ml Med 07/05/25 02:38 Discontinued IV 999 mls/hr Vital Signs Vital signs: Vital Signs Temperature 97.4 F 07/05/25 02:28 Pulse Rate 74 07/05/25 02:28 Respiratory Rate 17 07/05/25 02:28 Blood Pressure 121/90 H 07/05/25 02:28 Pulse Oximetry (%) 96 07/05/25 02:28 Oxygen Delivery Method Room Air 07/05/25 02:28 Abdominal Pain MDM MDM Narrative MDM Narrative:: Scribe Attestation: I, Collette Kothari, am scribing for and in the presence of Dr. Herbert. This section includes all my notes and documentations, including HPI, PE, and ED course. Ernie Herbert MD HPI: 34 y/o female with Hx of ovarian torsion presents with severe pelvic tenderness x 3 days. No other complaints. ROS: All negative except as documented in HPI. Physical Exam: General: Alert and oriented. In severe pain. Eyes: Conjunctivae and lids clear. ENT: No nasal congestion. Neck: Supple. Heart: RRR. Lungs: No respiratory distress. Good air movement. No rhonchi, wheezing, rales. Abdomen: Soft with severe right sided pelvic tenderness. Decreased bowel sounds. No distension. No rebound or guarding. Back: No CVA tenderness. Skin: Warm and dry. Neuro: Alert and oriented X 3. I reviewed all diagnostic test results: My review of the Transvaginal US report is: No evidence of ovarian torsion. Blood tests and urine tests unremarkable. At this point, diagnoses include: Severe pelvic pain of unclear etiology. Pelvic CT pending. Treatment here included: IVF, Toradol 30 mg, Morphine 6 mg, Zofran 4 mg At 6 AM on 07/05/2025, the care of the patient was transferred to Dr. Carter. Ernie Herbert MD Patient data External records reviewed:: [facility] previous records (Reviewed prior ED records from 07/03/25. Patient was seen for Pelvic pain.) Clinical information provided by:: patient Social determinants that could affect healthcare access:: none Patient has the following chronic illnesses:: Migraine, Hypertension, Gall Bladder Disease, Gastroesophageal Reflux Disease, Obesity, Kidney Stones, Degenerative Disk Disease, Diabetes Mellitus Type 2, Anemia, Anxiety How is presenting disease/condition affected by chronic disease/condition?: exacerbated by Evaluation data The following diagnostics were reviewed and interpreted by me:: lab results and radiology exam(s) Lab and/or radiology exams considered but not ordered:: None Interpretation Summary: I reviewed all diagnostic test results: My review of the Transvaginal US report is: No evidence of ovarian torsion. Blood tests and urine tests unremarkable. Medications / Prescriptions Medications or Prescriptions considered but not ordered:: None Medication administrations:: Medication Administration History Acetaminophen (Acetaminophen 325 Mg Tablet) 650 mg PO Q6H PRN PRN Reason: Fever >100.5 or pain 1-3 Stop: 08/04/25 09:24 Hydrocodone Bitart/Acetaminophen (Hydrocodone/Apap 5/325 Tablet) 1 tab PO Q4HR PRN PRN Reason: PAIN SCALE 4-6 (Moderate Stop: 07/10/25 09:30 Last Admin: 07/06/25 04:17 Dose: 1 tab Documented By: Admin: 07/05/25 17:09 Dose: 1 tab Documented By: PORFIRIO Heparin Sodium (Porcine) (Heparin Sod Inj 5000 Unit/Ml Vial) 5,000 unit SC Q12HR [facility] Stop: 07/19/25 20:59 Last Admin: 07/05/25 20:43 Dose: 5,000 unit Documented By: SEAN Co-signed By: SHAMA Ciprofloxacin/Dextrose (Cipro Ivpb) 400 mg in 200 mls @ 200 mls/hr IV Q12HR [facility] Stop: 07/12/25 08:59 Last Admin: 07/05/25 20:43 Dose: 200 mls/hr Documented By: Infusion: 07/05/25 10:47 Dose: Infused Documented By: Admin: 07/05/25 09:47 Dose: 200 mls/hr Documented By: PORFIRIO Metronidazole (Flagyl 500 Mg Iv) 500 mg in 100 mls @ 200 mls/hr IV Q8HR [facility] Stop: 07/12/25 07:51 Last Admin: 07/05/25 22:30 Dose: 200 mls/hr Documented By: Infusion: 07/05/25 14:17 Dose: Infused Documented By: Admin: 07/05/25 13:47 Dose: 200 mls/hr Documented By: Infusion: 07/05/25 09:00 Dose: Infused Documented By: Admin: 07/05/25 08:30 Dose: 200 mls/hr Documented By: PORFIRIO Morphine Sulfate (Morphine Sulf Inj 10 Mg/Ml Vial) 1 mg IVP Q2H PRN PRN Reason: PAIN SCALE 7-10 (Severe Stop: 07/10/25 09:30 Ondansetron HCl (Ondansetron Inj 2 Mg/Ml Inj 2 Ml) 4 mg IVP Q6H PRN; Protocol PRN Reason: NAUSEA OR VOMITING Stop: 08/04/25 09:24 Last Admin: 07/05/25 19:04 Dose: 4 mg Documented By: Admin: 07/05/25 12:42 Dose: 4 mg Documented By: PORFIRIO Pantoprazole Sodium (Pantoprazole Inj 40 Mg Vial) 40 mg IVP QDAY CE Stop: 08/05/25 08:59 Discontinued Medications Sodium Chloride (Ns) 1,000 mls @ 999 mls/hr IV .Q1H1M ONE Stop: 07/05/25 03:38 Last Infusion: 07/05/25 04:14 Dose: Infused Documented By: Admin: 07/05/25 03:13 Dose: 999 mls/hr Documented By: KALEB Meropenem 1,000 mg/ Sodium (Chloride) 50 mls @ 100 mls/hr IV STAT STA Stop: 07/05/25 06:07 Last Infusion: 07/05/25 07:14 Dose: Infused Documented By: Admin: 07/05/25 06:44 Dose: 100 mls/hr Documented By: KALEB Potassium Chloride (Kcl Ivpb) 10 meq in 100 mls @ 100 mls/hr IV Q1H CE Stop: 07/05/25 16:29 Last Infusion: 07/05/25 17:13 Dose: Infused Documented By: Admin: 07/05/25 16:13 Dose: 100 mls/hr Documented By: Infusion: 07/05/25 16:06 Dose: Infused Documented By: Admin: 07/05/25 15:06 Dose: 100 mls/hr Documented By: Infusion: 07/05/25 14:38 Dose: Infused Documented By: Admin: 07/05/25 13:38 Dose: 100 mls/hr Documented By: Infusion: 07/05/25 13:38 Dose: Infused Documented By: Admin: 07/05/25 12:42 Dose: 100 mls/hr Documented By: PORFIRIO Ketorolac Tromethamine (Ketorolac Inj 30 Mg/Ml Vial) 30 mg IVP X1 ONE Stop: 07/05/25 02:39 Last Admin: 07/05/25 03:12 Dose: 30 mg Documented By: KALEB Morphine Sulfate (Morphine Sulf Inj 10 Mg/Ml Vial) 6 mg IVP X1 ONE Stop: 07/05/25 02:39 Last Admin: 07/05/25 03:12 Dose: 6 mg Documented By: MM Morphine Sulfate (Morphine Sulf Inj 10 Mg/Ml Vial) 4 mg IVP STAT STA Stop: 07/05/25 06:37 Last Admin: 07/05/25 06:43 Dose: 4 mg Documented By: MM Ondansetron HCl (Ondansetron Inj 2 Mg/Ml Inj 2 Ml) 4 mg IVP X1 ONE; Protocol Stop: 07/05/25 02:39 Last Admin: 07/05/25 03:12 Dose: 4 mg Documented By: KALEB Treatment from [place] included IVF, Toradol 30 mg, Morphine 6 mg, Zofran 4 mg. Consultations Consultation(s) initiated? (list below): No Diagnosis Differential diagnosis abdominal pain: abdominal pain, acute appendicitis, constipation, diverticulitis, endometriosis, gastroenteritis and small bowel obstruction Most likely diagnosis given after review of the tests above:: Complete diagnostic tests are pending. Admission Indicated Admission indicated?: not indicated Explain why admission is indicated or not indicated:: Complete diagnostic tests are pending. Admission Request Was there a request for admission?: No Disposition Plan Disposition Plan: other (specify) (At 6 AM on 07/05/2025, the care of the patient was transferred to Dr. Carter.) Discharge Plan Plan Patient Disposition: Admit Acute Care w/in Hospital Problem List Clinical Impression: Pelvic pain
--- NOTE | 2025-07-05 02:40 | XR_ITS ---
Examination: CT pelvis with intravenous contrast. 2-D sagittal and coronal reconstructions. Date and time of exam:July 05, 2025, 0350 hours, comparison May 13, 2025 INDICATIONS: Pelvic pain severe the last 4 days, complex right adnexal cystic mass [address] abdomen and pelvis May 13, 2025 CTDI: vol (mGy) :30.6 DLP: (mGycm) : 956 Technique: Multiple 3 mm axial sections of the pelvis have been obtained with the 64 slice high resolution scanner. Intravenous administration 60 cc [id number] 2-D sagittal and coronal reconstructions. Low dose protocols were performed. One or more of the following dose reduction techniques were used; automated exposure control, adjustment of the mA and/or KV according to patient size, use of iterative reconstruction technique. Findings: Significant inflammatory change around the sigmoid colon, axial image 44 with fat stranding There are small fluid collections in the pelvis, one in the cul-de-sac, transverse dimension 2.8 cm and one in the posterior right pelvis transverse dimension 2.1 cm Contracted urinary bladder The osseous structures are intact IMPRESSION: Findings most consistent with acute diverticulitis involving sigmoid colon There are small fluid collections of the pelvis, one in the cul-de-sac transverse dimension 2.8 cm and 1 in the posterior right pelvis 2.1 cm These collections are too small to place a drainage catheter in, suggest repeat CT study post antibiotic therapy in 3-4 days
--- NOTE | 2025-07-05 02:51 | XR_ITS ---
Examination: Transvaginal ultrasound of the pelvis, complete Technique: Transvaginal sonographic images pelvis performed using varma scale imaging Exam date and time: July 05, 2025, 0325 hours INDICATIONS: Worsening right-sided pelvic pain beginning one week ago FINDINGS: Uterus 8.7 cm endometrial stripe 0.7 cm No uterine mass or intrauterine gestation Right ovary 4.0 cm arterial flow, 50 mm follicular cyst Left ovary 3.4 cm arterial flow Mild fluid in the cul-de-sac IMPRESSION: No uterine mass or intrauterine gestation
[2025-07-05 03:12] LABS: Basophils # (Auto) 0.0 Thou/mm3 (0.0-0.2); Basophils % (Auto) 0 % (0-2.5); Eosinophils # (Auto) 0.2 Thou/mm3 (0.0-0.5); Eosinophils % (Auto) 3 % (0-10); Hematocrit 36.8 % (36.0-46.0); Hemoglobin 12.4 g/dL (12.0-16.0); Immature Granulocytes Auto 0.03 Thou/mm3 (0.00-0.00); Lymphocytes # (Auto) 2.2 Thou/mm3 (1.0-4.8); Lymphocytes % (Auto) 27 % (10-50); Mean Corpuscular HGB Conc 33.7 g/dl (31.0-37.0); Mean Corpuscular Hemoglobin 29.7 pg (25.0-35.0); Mean Corpuscular Volume 88 fL (80-100); Monocytes # (Auto) 0.6 Thou/mm3 (0.0-0.8); Monocytes % (Auto) 7 % (0-12); Neutrophils # (Auto) 5.0 Thou/mm3 (1.8-7.7); Neutrophils % (Auto) 63 % (37-80); Nucleated Red Blood Cell # 0.00 Thou/mm3 (0.00-0.00); Nucleated Red Blood Cell % 0 /100 WBC (0); Platelet Count 236 Thou/mm3 (140-440); RDW Standard Deviation 43.1 fL (36.4-46.3); Red Blood Count 4.18 Miln/mm3 (4.00-5.20); White Blood Count 8.1 Thou/mm3 (3.6-11.0)
[2025-07-05] MEDS: KETOROLAC INJ 30 MG/ML VIAL IVP (03:12)
[2025-07-05] MEDS: ONDANSETRON INJ 2 MG/ML INJ 2 ML 4 MG IVP ×3 (03:12→19:04)
[2025-07-05] MEDS: MORPHINE SULF INJ 10 MG/ML VIAL 6 MG IVP (03:12)
[2025-07-05] MEDS: SODIUM CHLORIDE 0.9% 1000 ML 1,000 ML 999 ML IV (03:13)
[2025-07-05 03:29] LABS: Alanine Aminotransferase 23 U/L (10-49); Albumin, Serum 4.3 gm/dL (3.5-5.0); Albumin/Globulin Ratio 1.7 (1.2-2.2); Alkaline Phosphatase 99 U/L (46-116); Anion Gap 11 (7-16); Aspartate Amino Transferase 19 U/L (0-34); BUN/Creatinine Ratio 8 Ratio (12-20); Beta HCG,Quantitative < 1 mIU/mL (<5.0); Bilirubin,Direct 0.4 mg/dL (0.0-0.3); Bilirubin,Total 1.2 mg/dL (0.3-1.2); Blood Urea Nitrogen 6 mg/dL (9-23); Calcium 9.5 mg/dL (8.3-10.6); Calcium (Corrected) 9.5 mg/dL (8.5-10.1); Carbon Dioxide 25.5 mMol/L (20.0-31.0); Chloride 106 mMol/L (98-107); Creatinine (Component) 0.8 mg/dL (0.6-1.3); Estimated Creatinine Clearance 118.6 mL/min (>60); Globulin 2.5 gm/dL (2.3-3.5); Glucose 99 mg/dL (74-106); Lipase 21 U/L (12-53); Magnesium 2.0 mg/dL (1.6-2.6); Osmolality,Calculated 280 (275-295); Potassium 3.5 mMol/L (3.4-5.1); Sodium 142 mMol/L (136-145); Total Protein 6.8 gm/dL (5.7-8.2); eGFR > 60 See Note
[2025-07-05 03:51] LABS: Collection Type, Urine Clean Catch; RBC,Urine 0 /hpf (0-3)
[2025-07-05 04:40] LABS: Bacteria,Urine Rare; Bilirubin,Urine Negative (Negative); Blood,Urine Negative (Negative); Clarity,Urine Clear (Clear/Hazy); Color,Urine Yellow (Lt Yel-Yel); Glucose, Urine Negative (Negative); Ketones,Urine Negative (Negative); Leukocyte Esterase,Urine Positive (Negative); Nitrite,Urine Negative (Negative); PH,Urine 5.5 (5.0-7.0); Protein,Urine Trace (Neg - Trace); Specific Gravity,Urine 1.021 (1.001-1.035); Squamous Epithelial Cell,Urine 6 /hpf (0-5); Urobilinogen,Urine Negative mg/dL (0.0-1.0); WBC,Urine 25 /hpf (0-5)
[2025-07-05 04:43] LABS: Culture Indicated,Urine Yes
[2025-07-05 04:47] LABS: Amphetamine/Methamp Scrn,U Negative (Negative); Barbiturate Screen,Urine Negative (Negative); Benzodiazepines Screen,Urine Negative (Negative); Benzoylecgonine Screen, Ur Negative (Negative); Fentanyl Screen,Urine Positive (Negative); Opiate Screen,Urine Positive (Negative); THC Screen,Urine Negative (Negative)
--- NOTE | 2025-07-05 04:52 | PRELIM_ITS ---
Pelvic ultrasound (transvaginal). July 05, 2025 0325 hours Clinical history: severe right pelvic tenderness Technique: Real-time, grayscale, transvaginal pelvic ultrasound was performed using Duplex scanning including arterial inflow, venous outflow, color and spectral Doppler. Comparison:Reference is made to the prior report dated May 13, 2025 Findings: The uterus is normal in size, measuring 8.7 x 4.5 x 6.2cm. The myometrium is mildly heterogeneous. The endometrium is unremarkable and measures 0.7cm. The right ovary measures 4 x 1.6 x 2.3cm. There is a small cyst measuring 1.5 x 1 x 1.1 cm. The left ovary measures 3.4 x 1.6 x 1.9cm and is unremarkable. Both ovaries demonstrate color flow and spectral waveforms on Doppler evaluation. There is no adnexal mass. There is a small free fluid on the cul-de-sac. Impression: No evidence of ovarian torsion. Small cyst measuring 1.5 x 1 x 1.1 cm. Small free fluid on the cul-de-sac. Report Electronically Signed By: Isidro Arceo 07/05/2025 4:51:43 AM [EST]
--- NOTE | 2025-07-05 06:02 | PRELIM_ITS ---
CT scan of the pelvis with intravenous contrast (axial sections with sagittal and coronal reformats) July 05, 2025 0350 hours Clinical History: Severe right pelvic pain. Comparison: Transvaginal ultrasound from earlier the same day. Findings: There is colonic diverticulosis with focal thickening of the sigmoid colon with associated ill-defined rim-enhancing complex fluidand associated surrounding fat stranding,measuring 5.4 x 1.5 cm, seenadjacent to it and inseparable from the right adnexa. The uterus is unremarkable.There is trace free fluid in the pelvis. There is no free air. No evidence of significant lymphadenopathy. The osseous structures appear unremarkable. Impression: Findings suggestive of acute sigmoid diverticulitis with adjacent rim-enhancing complex fluid, inseparable from the right adnexa, likely representing abscess. Recommend clinical correlation. Trace free fluid in the pelvis. Report Electronically Signed By: Isidro Arceo 07/05/2025 6:02:05 AM [EST]
--- NOTE | 2025-07-05 06:32 | EDNOTE_ITS ---
Emergency Room Addendum <Nelly Carter MD - Last Filed: 07/05/25 07:09> Addendum Narrative: Patient is a 34yo female that p/w RLQ abd pain. Prior provider evaluated patient. Ordered pelvic u/s and CT/abd pelvis, labs fluids and medications for symptom relief. On my assessment, patient continues to have right lower quadrant abdominal pain, no rebound or guarding however her pain is significant. She is hemodynamically stable and not in distress. Labs without acute hematologic or significant metabolic abnormality, patient is not urinalysis without evidence of infection. Pelvic ultrasound with small right-sided ovarian cyst and free fluid in the pelvis. CT abdomen pelvis with colonic diverticulosis with focal thickening of the sigmoid colon with associated ill-defined rim-enhancing complex fluidand associated surrounding fat stranding,measuring 5.4 x 1.5 cm, seen adjacent to it and inseparable from the right adnexa. Discussed findings with on-call surgeon Dr. Flores, reviewed the images, and does not identify the abscess on his assessment however recommends that we admit the patient for IV antibiotics and if and abscesses develop to consult interventional radiology for drainage. I have ordered blood cultures and IV antibiotics. Patient has a cephalosporin allergy, states that she gets a rash and difficulty breathing. Discussed with her that because of this allergy and findings on CT that we can provide her with meropenem that has a small chance of cross-reactivity and given her allergic reaction is important that she knows about this cross-reactivity. Patient stated that she understands the risks however would like to proceed with a trial of meropenem here in the emergency department. Discussed with pharmacy, in agreement. Recommend that we monitor the patient. 7:08a discussed case with on-call hospitalist Dr. Sidhu, kindly accepts patient for admission <Yvonne Price - Last Filed: 07/05/25 07:09> Addendum Narrative: Patient is a 34yo female that p/w RLQ abd pain. Prior provider evaluated patient. Ordered pelvic u/s and CT/abd pelvis, labs fluids and medications for symptom relief. Labs without acute hematologic or significant metabolic abnormality, patient is not urinalysis without evidence of infection. Pelvic ultrasound with small right-sided ovarian cyst and free fluid in the pelvis. CT abdomen pelvis with colonic diverticulosis with focal thickening of the sigmoid colon with associated ill-defined rim-enhancing complex fluidand associated surrounding fat stranding,measuring 5.4 x 1.5 cm, seen adjacent to it and inseparable from the right adnexa. Discussed findings with on-call surgeon Dr. Flores, reviewed the images, and does not identify the abscess on his assessment however yoseph mmends that we admit the patient for IV antibiotics and if and abscesses develop to consult interventional radiology for drainage. I have ordered blood cultures and IV antibiotics. Patient has a cephalosporin allergy, states that she gets a rash and difficulty breathing. Discussed with her that because of this allergy and findings on CT that we can provide her with meropenem that has a small ch ance of cross-reactivity and given her allergic reaction is important that she knows about this cross-reactivity. Patient stated that she understands the risks however would like to proceed with a trial of meropenem here in the emergency department. Discussed with pharmacy, in agreement. Recommend that we monitor the patient. 0708: Discussed test HPI, PMHx, lab, radiology results and/or management with resident working with the hospitalist. Will admit for further evaluation and management. Accepts patient for admission. Results <Nelly Carter MD - Last Filed: 07/05/25 07:09> Objective Laboratory: Laboratory Last Values WBC 8.1 Thou/mm3 (3.6-11.0) 07/05/25 03:02 RBC 4.18 Miln/mm3 (4.00-5.20) 07/05/25 03:02 Hgb 12.4 g/dL (12.0-16.0) 07/05/25 03:02 Hct 36.8 % (36.0-46.0) 07/05/25 03:02 MCV 88 fL (80-100) 07/05/25 03:02 MCH 29.7 pg (25.0-35.0) 07/05/25 03:02 MCHC 33.7 g/dl (31.0-37.0) 07/05/25 03:02 RDW Std Deviation 43.1 fL (36.4-46.3) 07/05/25 03:02 Plt Count 236 Thou/mm3 (140-440) 07/05/25 03:02 Neut % (Auto) 63 % (37-80) 07/05/25 03:02 Lymph % (Auto) 27 % (10-50) 07/05/25 03:02 [place] % (Auto) 7 % (0-12) 07/05/25 03:02 Eos % (Auto) 3 % (0-10) 07/05/25 03:02 Baso % (Auto) 0 % (0-2.5) 07/05/25 03:02 Neut # (Auto) 5.0 Thou/mm3 (1.8-7.7) 07/05/25 03:02 Lymph # (Auto) 2.2 Thou/mm3 (1.0-4.8) 07/05/25 03:02 [place] # (Auto) 0.6 Thou/mm3 (0.0-0.8) 07/05/25 03:02 Eos # (Auto) 0.2 Thou/mm3 (0.0-0.5) 07/05/25 03:02 Baso # (Auto) 0.0 Thou/mm3 (0.0-0.2) 07/05/25 03:02 Immature Gran # (Auto) 0.03 Thou/mm3 (0.00-0.00) H 07/05/25 03:02 Absolute Nucleated RBC 0.00 Thou/mm3 (0.00-0.00) 07/05/25 03:02 Immature Gran % 0 % (0-0) 07/05/25 03:02 Nucleated RBC % 0 /100 WBC (0) 07/05/25 03:02 Sodium 142 mMol/L (136-145) 07/05/25 03:02 Potassium 3.5 mMol/L (3.4-5.1) 07/05/25 03:02 Chloride 106 mMol/L (98-107) 07/05/25 03:02 Carbon Dioxide 25.5 mMol/L (20.0-31.0) 07/05/25 03:02 Anion Gap 11 (7-16) 07/05/25 03:02 BUN 6 mg/dL (9-23) L 07/05/25 03:02 Creatinine 0.8 mg/dL (0.6-1.3) 07/05/25 03:02 Estim Creat Clear Calc 118.6 mL/min (>60) 07/05/25 03:02 eGFR > 60 See Note (60-) 07/05/25 03:02 BUN/Creatinine Ratio 8 Ratio (12-20) L 07/05/25 03:02 Glucose 99 mg/dL (74-106) 07/05/25 03:02 Calculated Osmolality 280 (275-295) 07/05/25 03:02 Calcium 9.5 mg/dL (8.3-10.6) 07/05/25 03:02 Corrected Calcium 9.5 mg/dL (8.5-10.1) 07/05/25 03:02 Magnesium 2.0 mg/dL (1.6-2.6) 07/05/25 03:02 Total Bilirubin 1.2 mg/dL (0.3-1.2) 07/05/25 03:02 Direct Bilirubin 0.4 mg/dL (0.0-0.3) H 07/05/25 03:02 AST 19 U/L (0-34) 07/05/25 03:02 ALT 23 U/L (10-49) 07/05/25 03:02 Alkaline Phosphatase 99 U/L (46-116) 07/05/25 03:02 Total Protein 6.8 gm/dL (5.7-8.2) 07/05/25 03:02 Albumin 4.3 gm/dL (3.5-5.0) 07/05/25 03:02 Globulin 2.5 gm/dL (2.3-3.5) 07/05/25 03:02 Albumin/Globulin Ratio 1.7 (1.2-2.2) 07/05/25 03:02 Lipase 21 U/L (12-53) 07/05/25 03:02 Beta HCG, Quant < 1 mIU/mL (<5.0) 07/05/25 03:02 Ur Collection Type Clean Catch 07/05/25 03:45 Urine Color Yellow (Lt Yel-Yel) 07/05/25 03:45 Urine Clarity Clear (Clear/Hazy) 07/05/25 03:45 Urine pH 5.5 (5.0-7.0) 07/05/25 03:45 Ur Specific [place] 1.021 (1.001-1.035) 07/05/25 03:45 Urine Protein Trace (Neg - Trace) 07/05/25 03:45 Urine Glucose (UA) Negative (Negative) 07/05/25 03:45 Urine Ketones Negative (Negative) 07/05/25 03:45 Urine Blood Negative (Negative) 07/05/25 03:45 Urine Nitrite Negative (Negative) 07/05/25 03:45 Urine Bilirubin Negative (Negative) 07/05/25 03:45 Urine Urobilinogen (Auto) Negative mg/dL (0.0-1.0) 07/05/25 03:45 Ur Leukocyte Esterase Positive (Negative) 07/05/25 03:45 Urine RBC 0 /hpf (0-3) 07/05/25 03:45 Urine WBC 25 /hpf (0-5) H 07/05/25 03:45 Ur Squamous Epith Cells 6 /hpf (0-5) H 07/05/25 03:45 Urine Bacteria Rare (None) 07/05/25 03:45 Ur Culture Indicated? Yes 07/05/25 03:45 Urine Opiates Screen Positive (Negative) A 07/05/25 03:45 Urine Fentanyl Screen Positive (Negative) A 07/05/25 03:45 Ur Barbiturates Screen Negative (Negative) 07/05/25 03:45 U Amphetamin/Meth Scrn Negative (Negative) 07/05/25 03:45 U Benzodiazepines Scrn Negative (Negative) 07/05/25 03:45 U Cocaine Metab Screen Negative (Negative) 07/05/25 03:45 U Marijuana (THC) Screen Negative (Negative) 07/05/25 03:45 Rh Interpretation Positive 07/05/25 03:02 <Yvonne Albert - Last Filed: 07/05/25 07:09> Objective Laboratory: Laboratory Last Values WBC 8.1 Thou/mm3 (3.6-11.0) 07/05/25 03:02 RBC 4.18 Miln/mm3 (4.00-5.20) 07/05/25 03:02 Hgb 12.4 g/dL (12.0-16.0) 07/05/25 03:02 Hct 36.8 % (36.0-46.0) 07/05/25 03:02 MCV 88 fL (80-100) 07/05/25 03:02 MCH 29.7 pg (25.0-35.0) 07/05/25 03:02 MCHC 33.7 g/dl (31.0-37.0) 07/05/25 03:02 RDW Std Deviation 43.1 fL (36.4-46.3) 07/05/25 03:02 Plt Count 236 Thou/mm3 (140-440) 07/05/25 03:02 Neut % (Auto) 63 % (37-80) 07/05/25 03:02 Lymph % (Auto) 27 % (10-50) 07/05/25 03:02 [place] % (Auto) 7 % (0-12) 07/05/25 03:02 Eos % (Auto) 3 % (0-10) 07/05/25 03:02 Baso % (Auto) 0 % (0-2.5) 07/05/25 03:02 Neut # (Auto) 5.0 Thou/mm3 (1.8-7.7) 07/05/25 03:02 Lymph # (Auto) 2.2 Thou/mm3 (1.0-4.8) 07/05/25 03:02 [place] # (Auto) 0.6 Thou/mm3 (0.0-0.8) 07/05/25 03:02 Eos # (Auto) 0.2 Thou/mm3 (0.0-0.5) 07/05/25 03:02 Baso # (Auto) 0.0 Thou/mm3 (0.0-0.2) 07/05/25 03:02 Immature Gran # (Auto) 0.03 Thou/mm3 (0.00-0.00) H 07/05/25 03:02 Absolute Nucleated RBC 0.00 Thou/mm3 (0.00-0.00) 07/05/25 03:02 Immature Gran % 0 % (0-0) 07/05/25 03:02 Nucleated RBC % 0 /100 WBC (0) 07/05/25 03:02 Sodium 142 mMol/L (136-145) 07/05/25 03:02 Potassium 3.5 mMol/L (3.4-5.1) 07/05/25 03:02 Chloride 106 mMol/L (98-107) 07/05/25 03:02 Carbon Dioxide 25.5 mMol/L (20.0-31.0) 07/05/25 03:02 Anion Gap 11 (7-16) 07/05/25 03:02 BUN 6 mg/dL (9-23) L 07/05/25 03:02 Creatinine 0.8 mg/dL (0.6-1.3) 07/05/25 03:02 Estim Creat Clear Calc 118.6 mL/min (>60) 07/05/25 03:02 eGFR > 60 See Note (60-) 07/05/25 03:02 BUN/Creatinine Ratio 8 Ratio (12-20) L 07/05/25 03:02 Glucose 99 mg/dL (74-106) 07/05/25 03:02 Calculated Osmolality 280 (275-295) 07/05/25 03:02 Calcium 9.5 mg/dL (8.3-10.6) 07/05/25 03:02 Corrected Calcium 9.5 mg/dL (8.5-10.1) 07/05/25 03:02 Magnesium 2.0 mg/dL (1.6-2.6) 07/05/25 03:02 Total Bilirubin 1.2 mg/dL (0.3-1.2) 07/05/25 03:02 Direct Bilirubin 0.4 mg/dL (0.0-0.3) H 07/05/25 03:02 AST 19 U/L (0-34) 07/05/25 03:02 ALT 23 U/L (10-49) 07/05/25 03:02 Alkaline Phosphatase 99 U/L (46-116) 07/05/25 03:02 Total Protein 6.8 gm/dL (5.7-8.2) 07/05/25 03:02 Albumin 4.3 gm/dL (3.5-5.0) 07/05/25 03:02 Globulin 2.5 gm/dL (2.3-3.5) 07/05/25 03:02 Albumin/Globulin Ratio 1.7 (1.2-2.2) 07/05/25 03:02 Lipase 21 U/L (12-53) 07/05/25 03:02 Beta HCG, Quant < 1 mIU/mL (<5.0) 07/05/25 03:02 Ur Collection Type Clean Catch 07/05/25 03:45 Urine Color Yellow (Lt Yel-Yel) 07/05/25 03:45 Urine Clarity Clear (Clear/Hazy) 07/05/25 03:45 Urine pH 5.5 (5.0-7.0) 07/05/25 03:45 Ur Specific [place] 1.021 (1.001-1.035) 07/05/25 03:45 Urine Protein Trace (Neg - Trace) 07/05/25 03:45 Urine Glucose (UA) Negative (Negative) 07/05/25 03:45 Urine Ketones Negative (Negative) 07/05/25 03:45 Urine Blood Negative (Negative) 07/05/25 03:45 Urine Nitrite Negative (Negative) 07/05/25 03:45 Urine Bilirubin Negative (Negative) 07/05/25 03:45 Urine Urobilinogen (Auto) Negative mg/dL (0.0-1.0) 07/05/25 03:45 Ur Leukocyte Esterase Positive (Negative) 07/05/25 03:45 Urine RBC 0 /hpf (0-3) 07/05/25 03:45 Urine WBC 25 /hpf (0-5) H 07/05/25 03:45 Ur Squamous Epith Cells 6 /hpf (0-5) H 07/05/25 03:45 Urine Bacteria Rare (None) 07/05/25 03:45 Ur Culture Indicated? Yes 07/05/25 03:45 Urine Opiates Screen Positive (Negative) A 07/05/25 03:45 Urine Fentanyl Screen Positive (Negative) A 07/05/25 03:45 Ur Barbiturates Screen Negative (Negative) 07/05/25 03:45 U Amphetamin/Meth Scrn Negative (Negative) 07/05/25 03:45 U Benzodiazepines Scrn Negative (Negative) 07/05/25 03:45 U Cocaine Metab Screen Negative (Negative) 07/05/25 03:45 U Marijuana (THC) Screen Negative (Negative) 07/05/25 03:45 Rh Interpretation Positive 07/05/25 03:02 Critical Care Time <Yvonne Albert - Last Filed: 07/05/25 07:09> Critical Care Time Critical Care Time: Yes Total Critical Care Time (min.): 45 Attestation: The high probability of sudden, clinically significant deterioration in the patient?s condition required the highest level of my preparedness to intervene urgently. The services I provided to this patient were to treat and/or prevent clinically significant deterioration. Services included the following: chart data review, reviewing nursing notes and/or old charts, documentation time, senior staff consultant collaboration regarding findings and treatment options, medication orders and management, direct patient care, vital sign assessments and ordering, interpreting and reviewing diagnostic studies and lab tests. Aggregate critical care time includes only time during which I was engaged in work directly related to the patient?s care, as described above, whether at bedside or elsewhere in the Emergency Department. It did not include time spent performing other reported procedures or the services of residents, students, nurses or physician assistants.
[2025-07-05] MEDS: MORPHINE SULF INJ 10 MG/ML VIAL 4 MG IVP (06:43)
[2025-07-05] MEDS: MEROPENEM INJ 1,000 MG in SODIUM CHLORIDE 0.9% (Popper) 50 ML 100 MG IV (06:44)
--- NOTE | 2025-07-05 07:47 | PC.NURSE ---
PT [facility] 15, REPORTS SHE RECEIVED PAIN MEDICATION THAT HAS HELPED. PT IN AGREEMENT W/POC. VSS.
[2025-07-05] MEDS: metroNIDAZOLE/NS 500 MG IVPB 500 MG/100 ML BAG 200 MG IV ×3 (08:30→22:30)
--- NOTE | 2025-07-05 09:35 | ESHP_ITS ---
<Statement entered by Nicole Mirza MD - 07/05/25 14:37> I have reviewed the note and agree with the resident's assessment & plan with exceptions as below. I have personally reviewed labs, imaging, home meds/prior records, examined the patient, formulated and discussed management plan with the IM team. Patient examined at bedside today. Patient is a 34-year-old female, ovarian cyst, endometriosis, and morbid obesity. Patient reports that she came in 2 days ago for an evaluation of lower abdominal pain in which she said it was severe and had felt like the pain similar to the pain she had about 1 year ago in which she underwent right ovarian cystectomy, removal of endometriosis scar tissue and, lysis of severe adhesions. She endorses right sided lower quadrant pain, that is severe and constant. Of note, imaging shows acute diverticulitis more prominent in sigmoid colon and possible fluid collections 2.8 cm and 2.1 cm. Patient was then started on Cipro and Flagyl for antibiotic coverage. General surgery consulted, appreciate recommendations. Patient likely to get IV antibiotics at this time, no drain or I&D at this time. Continue with multimodal analgesia, perform cardiac stratification. Repeat hematology and chemistry in AM. Urine drug screen shows opioids and fentanyl, I am not sure where patient got fentanyl or if it was given to her recently, however her recent visit to the ED did not show fentanyl being given as a medicine. #Acute sigmoid diverticulitis #Diverticular abscesses #Morbid obesity #Asymptomatic Bacteriuria Nicole Mirza, PGY-2 Internal Medicine Documentation for date of: 07/05/25 HPI History of Present Illness Chief complaint: Abdominal Pain History of present illness: Madisyn Young is a 34 year old female with a past medical history of DM, htn who presented with a chief complaint of abdominal pain. Patient states that this last Wednesday she started to have some R sided abdominal pain that does not radiate. Patient said the pain worsened yesterday in the same spot. Nothing has made the pain feel better, certain movements and palpation worsen the pain. Patient states she has had similar pain last year when she went to the hospital and was found to have a twisted ovary that was treated with surgery along with cysts next to it. Patient endorses having chills, nausea, dizziness from pain. Patient denies fever, chest pain, dyspnea, diarrhea, constipation, hematuria, hematochezia or melena. Past Medical History: DM, htn (states does not take medication for it anymore since gastric sleeve) Family History: Aunts with Breast and Pancreatic cancer Surgical History: cholecystectomy, appendectomy, gastric sleeve 2 months ago Social History: Denies history of smoking, denies current alcohol use, denies recreational drug use Current Medications: Multivitamin, iron pill Allergies: Keflex and related abx (states she has had difficulty breathing and rash) ED Course: -Initial vitals were 97.4 F, 74 HR, 17 RR, 121/90 BP, 96%O2 RA -Labs significant for WBC 8.1, Hgb 12.4, Direct Bili 0.4, Lipase negative, Beta- HCG negative, UA showed 25 wbc, LE pos; Utox pos for opiates, fentanyl -Imaging included CT Pelvis showing Findings most consistent with acute diverticulitis involving sigmoid colon along with small fluid collections of the pelvis too small to drain. Also Transvaginal US that was negative. -In the ED, patient was given Ketorolac, Morphine, 1 L IV fluid bolus, Meropenem 1000 mg IV x1 and Metronidazole 500 mg IV q8hr -Patient was admitted for Diverticulitis Review of Systems Review of systems otherwise negative except what is mentioned above. Exam Vital Signs Temp Pulse Resp BP Pulse Ox O2 Del Method 97.2 F 52 L 17 105/63 96 Room Air 07/05/25 05:58 07/05/25 05:58 07/05/25 05:58 07/05/25 05:58 07/05/25 05:58 07/05/25 05:58 Narrative Exam General: No acute distress; A&Ox3 Skin: Warm, dry, intact, no obvious rash. HENT: NCAT, EOMI, not icteric. External ears normal. No rhinorrhea. Moist mucous membranes Cardiovascular: Regular rate and rhythm, no murmur, +S1/S2. Respiratory: Lungs CTAB GI: RLQ tenderness, no masses palpated, no erythema, no distension; No guarding or rebound tenderness. Extremities: no edema, no cyanosis, no clubbing. Extremity pulses present Neuro: No focal deficits observed. Conversant, moving all extremities. No overt cerebellar signs/incoordination. Psychiatric: Cooperative, appropriate affect. Results: Labs 07/06/25 04:09 07/06/25 04:09 Labs: Short CBC 07/05/25 Range/Units 03:02 WBC 8.1 (3.6-11.0) Thou/mm3 Hgb 12.4 (12.0-16.0) g/dL Hct 36.8 (36.0-46.0) % Plt Count 236 (140-440) Thou/mm3 BMP 07/05/25 03:02 Sodium 142 Potassium 3.5 Chloride 106 Carbon Dioxide 25.5 BUN 6 L Creatinine 0.8 Glucose 99 Calcium 9.5 Liver Function 07/05/25 Range/Units 03:02 Total Bilirubin 1.2 (0.3-1.2) mg/dL Direct Bilirubin 0.4 H (0.0-0.3) mg/dL AST 19 (0-34) U/L ALT 23 (10-49) U/L Alkaline Phosphatase 99 (46-116) U/L Albumin 4.3 (3.5-5.0) gm/dL Urine 07/05/25 Range/Units 03:45 Urine Color Yellow (Lt Yel-Yel) Urine Clarity Clear (Clear/Hazy) Urine pH 5.5 (5.0-7.0) Ur Specific [place] 1.021 (1.001-1.035) Urine Protein Trace (Neg - Trace) Urine Glucose (UA) Negative (Negative) Quality Measures Quality Measures VTE prophylaxis Medications Home Medications and Allergies Home Medications ?Medication ?Instructions ?Recorded ?Confirmed ?Type semaglutide 1 mg/dose (4 mg/3 mL) 1 mg subcut QWEEK 07/05/25 History subcutaneous pen injector (Ozempic) Allergies Allergy/AdvReac Type Severity Reaction Status Date / Time cephalexin AdvReac Intermediate Anaphylaxis Verified 07/03/25 08:44 Visit Medications Acetaminophen (Acetaminophen 325 Mg Tablet) 650 mg PO Q6H PRN PRN Reason: Fever >100.5 or pain 1-3 Stop: 08/04/25 09:24 Hydrocodone Bitart/Acetaminophen (Hydrocodone/Apap 5/325 Tablet) 1 tab PO Q4HR PRN PRN Reason: PAIN SCALE 4-6 (Moderate Stop: 07/10/25 09:30 Heparin Sodium (Porcine) (Heparin Sod Inj 5000 Unit/Ml Vial) 5,000 unit SC Q12HR CE Stop: 07/19/25 20:59 Ciprofloxacin/Dextrose (Cipro Ivpb) 400 mg in 200 mls @ 200 mls/hr IV Q12HR CE Stop: 07/12/25 08:59 Metronidazole (Flagyl 500 Mg Iv) 500 mg in 100 mls @ 200 mls/hr IV Q8HR CE Stop: 07/12/25 07:51 Last Admin: 07/05/25 08:30 Dose: 200 mls/hr Morphine Sulfate (Morphine Sulf Inj 10 Mg/Ml Vial) 1 mg IVP Q2H PRN PRN Reason: PAIN SCALE 7-10 (Severe Stop: 07/10/25 09:30 Ondansetron HCl (Ondansetron Inj 2 Mg/Ml Inj 2 Ml) 4 mg IVP Q6H PRN; Protocol PRN Reason: NAUSEA OR VOMITING Stop: 08/04/25 09:24 Pantoprazole Sodium (Pantoprazole Inj 40 Mg Vial) 40 mg IVP QDAY CE Stop: 08/05/25 08:59 Discontinued Medications Sodium Chloride (Ns) 1,000 mls @ 999 mls/hr IV .Q1H1M ONE Stop: 07/05/25 03:38 Last Infusion: 07/05/25 04:14 Dose: Infused Meropenem 1,000 mg/ Sodium (Chloride) 50 mls @ 100 mls/hr IV STAT STA Stop: 07/05/25 06:07 Last Infusion: 07/05/25 07:14 Dose: Infused Ketorolac Tromethamine (Ketorolac Inj 30 Mg/Ml Vial) 30 mg IVP X1 ONE Stop: 07/05/25 02:39 Last Admin: 07/05/25 03:12 Dose: 30 mg Morphine Sulfate (Morphine Sulf Inj 10 Mg/Ml Vial) 6 mg IVP X1 ONE Stop: 07/05/25 02:39 Last Admin: 07/05/25 03:12 Dose: 6 mg Morphine Sulfate (Morphine Sulf Inj 10 Mg/Ml Vial) 4 mg IVP STAT STA Stop: 07/05/25 06:37 Last Admin: 07/05/25 06:43 Dose: 4 mg Ondansetron HCl (Ondansetron Inj 2 Mg/Ml Inj 2 Ml) 4 mg IVP X1 ONE; Protocol Stop: 07/05/25 02:39 Last Admin: 07/05/25 03:12 Dose: 4 mg Assessment & Plan Plan Madisyn Young is a 34 year old female with a past medical history of DM, htn who presented with a chief complaint of abdominal pain. Patient was admitted for Diverticulitis #Acute diverticulitis with likely peridiverticular abscess #Intractable RLQ abdominal pain Suspecting diverticulitis vs ovarian cysts vs less likely UTI History of ovarian torsion and ovarian cysts CT Pelvis showed findings most consistent with acute diverticulitis involving sigmoid colon, small fluid collections of the pelvis, one in the cul-de-sac transverse dimension 2.8 cm and 1 in the posterior right pelvis 2.1 cm. US transvaginal showed Right ovary 4.0 cm arterial flow, 50 mm follicular cyst, Mild fluid in the cul-de-sac, No uterine mass or intrauterine gestation. In ED, given Morphine 6 mg IV x1, IV 1 L fluid bolus x1, meroenem 1,000 mg x1 - Surgery consulted, recommends that we admit the patient for IV antibiotics and if and abscesses develop to consult interventional radiology for drainage. - Flagyll 500 mg IV q8hr - Ciprofloxacin 400 mg IV q12hr - Pain controlled with acetaminophen, norco, morphine prn. - Nausea managed with prn zofran - blood/urine cultures pending #Urine toxicology Screen Positive Positive for opiates and fentanyl Patient denied taking any substance on admission. #Elevated Direct Bilirubin mild elevation Direct bilirubin 0.4 unknown etiology; may be related to diverticulitis or ovarian cysts #DM #HTN Patient states does not take medication for it anymore and has had good numbers since gastric sleeve 2 months ago. -will continue to monitor glucose and blood pressure Hospital Management: Disposition: Med Surg Diet: Clear Liquid GI Prophylaxis: Protonix 40 mg iv qd Bowel Prophylaxis: DVT Prophylaxis: heparin CODE STATUS: FULL CODE Patient plan of care was discussed with the attending physician, Dr. Sidhu & senior resident Dr. Yuki Welsh MD PGY-1 Attending Provider Attestation/Addendum After examination of the patient and review of the clinical data I feel that this patient needs admission to the hospital for further treatment/evaluation. I have discussed and was present for the essential components of the history, physical examination, diagnosis, and treatment plan with the resident. I agree with the patient's care as documented by the resident and amended herein by me. Tone Sidhu DO. Although this document has been carefully reviewed, there may still be some phonetic and other typographical errors. These errors are purely grammatical due to imperfections in the software program and should not be construed in any way to compromise the substance of the patient's medical care during this visit. Patient seen and evaluated in the ED. Patient admitted for acute diverticulitis with peridiverticular abscess. U tox also positive for fentanyl. Will start IV antibiotics, ciprofloxacin 400 mg every 12 hours and Flagyl 500 mg every 8 hours for now. General surgery consulted, no indication for I&D at this time however if patient does not improve, that may be warranted. Will consider repeat imaging in 3 to 4 days pending patient improvement. Pain control on board, on clear liquid diet for now, will continue to monitor closely.
[2025-07-05] MEDS: CIPROFLOXACIN/D5w 400 MG IVPB 400 MG/200 ML BAG 200 MG IV ×2 (09:47→20:43)
--- NOTE | 2025-07-05 11:18 | PC.NURSE ---
ATTEMPTED TO CALL PROVIDER 2X 2 DIFFERENT EXT, NO ANSWER AT THIS TIME TO REQUEST NAUSEA MEDICATION
--- NOTE | 2025-07-05 11:50 | PC.CC ---
Patient is a 34 year-old female who presents to the hospital for Diverticulitis. Marcelina RYAN made [id number] contact with patient. OPTICAL MECHANIC introduced self, role, and reason for visit.?Patient appeared alert and oriented to self, location, and situation.?Patient was pleasant and engaged in initial assessment. Patient confirmed information on demographics and reports to living at home with her mother and 6 children. Patient reports that in the event she is unable to make her own medical decisions her medical decision maker is her father, Vj Young. At home patient reports she is able to ambulate independently and complete her own ADLs. Patient does not require any DME. Patient's primary provider is Heather Guerin, her pharmacy of choice is [facility]. Upon discharge patient plans to return home. resident services supervisor to follow up with any discharge needs.
[2025-07-05] MEDS: POTASSIUM CHL 10 mEq IVPB 10 MEQ/100 ML BAG 100 MEQ IV ×4 (12:42→16:13)
[2025-07-05] MEDS: HYDROcodone/APAP 5/325 TABLET 1 TAB PO (17:09)
--- NOTE | 2025-07-05 19:33 | PC.NURSE ---
Dr. Chew hospitalist was contacted regarding patient's health history of DM. No order for blood sugar check have been seen on patient's chart. Per Dr. Chew, no need for blood sugar check as patient's labs looks good.
[2025-07-05] MEDS: HEPARIN SOD INJ 5000 UNIT/ML VIAL SC (20:43)
[2025-07-06] VITALS: BP 91/71; PULSE 73; RESP 16; TEMP 36.1; O2SAT 96
[2025-07-06 04:00] VITALS: BP 99/75; PULSE 64; RESP 15; TEMP 36.1; O2SAT 98
[2025-07-06] MEDS: HYDROcodone/APAP 5/325 TABLET 1 TAB PO ×2 (04:17→10:27)
[2025-07-06] MEDS: metroNIDAZOLE/NS 500 MG IVPB 500 MG/100 ML BAG 200 MG IV ×3 (05:26→22:48)
[2025-07-06 06:31] LABS: Basophils # (Auto) 0.0 Thou/mm3 (0.0-0.2); Basophils % (Auto) 0 % (0-2.5); Eosinophils # (Auto) 0.2 Thou/mm3 (0.0-0.5); Eosinophils % (Auto) 3 % (0-10); Hematocrit 34.9 % (36.0-46.0); Hemoglobin 11.9 g/dL (12.0-16.0); Immature Granulocytes Auto 0.01 Thou/mm3 (0.00-0.00); Lymphocytes # (Auto) 1.7 Thou/mm3 (1.0-4.8); Lymphocytes % (Auto) 32 % (10-50); Mean Corpuscular HGB Conc 34.1 g/dl (31.0-37.0); Mean Corpuscular Hemoglobin 30.1 pg (25.0-35.0); Mean Corpuscular Volume 88 fL (80-100); Monocytes # (Auto) 0.4 Thou/mm3 (0.0-0.8); Monocytes % (Auto) 7 % (0-12); Neutrophils # (Auto) 3.1 Thou/mm3 (1.8-7.7); Neutrophils % (Auto) 58 % (37-80); Nucleated Red Blood Cell # 0.00 Thou/mm3 (0.00-0.00); Nucleated Red Blood Cell % 0 /100 WBC (0); Platelet Count 223 Thou/mm3 (140-440); RDW Standard Deviation 43.7 fL (36.4-46.3); Red Blood Count 3.95 Miln/mm3 (4.00-5.20); White Blood Count 5.3 Thou/mm3 (3.6-11.0)
[2025-07-06 06:35] LABS: INR 1.0 (0.9-1.3); Partial Thromboplastin Time 31.6 Seconds (22.0-36.0); Prothrombin Time 11.4 Seconds (9.0-12.2)
[2025-07-06 07:11] LABS: Alanine Aminotransferase 31 U/L (10-49); Albumin, Serum 3.8 gm/dL (3.5-5.0); Albumin/Globulin Ratio 1.5 (1.2-2.2); Alkaline Phosphatase 91 U/L (46-116); Anion Gap 13 (7-16); Aspartate Amino Transferase 27 U/L (0-34); BUN/Creatinine Ratio 8 Ratio (12-20); Bilirubin,Total 0.9 mg/dL (0.3-1.2); Blood Urea Nitrogen < 5 mg/dL (9-23); Calcium 8.9 mg/dL (8.3-10.6); Calcium (Corrected) 9.1 mg/dL (8.5-10.1); Carbon Dioxide 23.9 mMol/L (20.0-31.0); Chloride 105 mMol/L (98-107); Creatinine (Component) 0.6 mg/dL (0.6-1.3); Estimated Creatinine Clearance 160.0 mL/min (>60); Globulin 2.5 gm/dL (2.3-3.5); Glucose 74 mg/dL (74-106); Magnesium 1.9 mg/dL (1.6-2.6); Osmolality,Calculated 279 (275-295); Phosphorous 3.2 mg/dL (2.4-5.1); Potassium 3.4 mMol/L (3.4-5.1); Sodium 142 mMol/L (136-145); Total Protein 6.3 gm/dL (5.7-8.2); eGFR > 60 See Note
[2025-07-06 07:23] LABS: Cardiac Risk Estimate 4.2 RATIO (3.7-5.6); Cholesterol 113 mg/dL (132-200); HDL Cholesterol 27 mg/dL (40-60); LDL Cholesterol,Calculated 65 mg/dL (0-130); Triglycerides 107 mg/dL (30-150)
[2025-07-06 08:00] VITALS: BP 99/58; PULSE 63; RESP 19; TEMP 36.2; O2SAT 94
[2025-07-06] MEDS: CIPROFLOXACIN/D5w 400 MG IVPB 400 MG/200 ML BAG 200 MG IV ×2 (08:34→20:23)
[2025-07-06] MEDS: ONDANSETRON INJ 2 MG/ML INJ 2 ML 4 MG IVP ×3 (08:35→23:42)
[2025-07-06] MEDS: HEPARIN SOD INJ 5000 UNIT/ML VIAL SC ×2 (08:35→20:23)
[2025-07-06] MEDS: SODIUM CHLORIDE 0.9% 1000 ML 1,000 ML 999 ML IV ×2 (08:54→17:02)
--- NOTE | 2025-07-06 11:40 | PC.SS ---
rounding note: Patient still experiencing abdominal pain. Possible d/c weekend.
[2025-07-06 12:00] VITALS: BP 112/67; PULSE 55; RESP 18; TEMP 36.2; O2SAT 95
--- NOTE | 2025-07-06 12:02 | ESPR_ITS ---
<Statement entered by Nicole Mirza MD - 07/06/25 17:18> I have reviewed the note and agree with the resident's assessment & plan with exceptions as below. I have personally reviewed labs, imaging, home meds/prior records, examined the patient, formulated and discussed management plan with the IM team. Patient examined at bedside today. No acute overnight events. Continue IV antibiotics at this time. Will order repeat CT scan with contrast to further evaluate infection. Patient continued to have abdominal pain, will hold on advancing diet and continue with clear liquids. Continue with multimodal pain management. Still unsure why patient had fentanyl in her urine previously. Repeat hematology and chemistry in AM. Nicole Mirza, PGY-2 Internal Medicine Documentation for date of: 07/06/25 Subjective Subjective Interval history: No acute events overnight. Patient seen and examined at bedside. Vitals and labs reviewed. Patient endorsese some nauseea and dizziness, states pain is well controlled. Patient denies fever, chest pain, shortness of breath Exam Vital Signs Temp Pulse Resp BP Pulse Ox O2 Del Method 97.2 F 63 19 99/58 L 94 L Room Air 07/06/25 08:00 07/06/25 08:00 07/06/25 08:00 07/06/25 08:00 07/06/25 08:00 07/06/25 08:00 Narrative Exam General: No acute distress; A&Ox3 Skin: Warm, dry, intact, no obvious rash. HENT: NCAT, EOMI, not icteric. External ears normal. No rhinorrhea. Moist mucous membranes Cardiovascular: Regular rate and rhythm, no murmur, +S1/S2. Respiratory: Lungs CTAB GI: RLQ tenderness, no masses palpated, no erythema, no distension; No guarding or rebound tenderness. Extremities: no edema, no cyanosis, no clubbing. Extremity pulses present Neuro: No focal deficits observed. Conversant, moving all extremities. No overt cerebellar signs/incoordination. Psychiatric: Cooperative, appropriate affect. Objective Labs 07/06/25 04:09 07/06/25 04:09 Labs: Laboratory Results - last 24 hr 07/06/25 04:09 WBC 5.3 RBC 3.95 L Hgb 11.9 L Hct 34.9 L MCV 88 MCH 30.1 MCHC 34.1 RDW Std Deviation 43.7 Plt Count 223 Neut % (Auto) 58 Lymph % (Auto) 32 [place] % (Auto) 7 Eos % (Auto) 3 Baso % (Auto) 0 Neut # (Auto) 3.1 Lymph # (Auto) 1.7 [place] # (Auto) 0.4 Eos # (Auto) 0.2 Baso # (Auto) 0.0 Immature Gran # (Auto) 0.01 H Absolute Nucleated RBC 0.00 Immature Gran % 0 Nucleated RBC % 0 PT 11.4 INR 1.0 APTT 31.6 Sodium 142 Potassium 3.4 Chloride 105 Carbon Dioxide 23.9 Anion Gap 13 BUN < 5 L Creatinine 0.6 Estim Creat Clear Calc 160.0 eGFR > 60 BUN/Creatinine Ratio 8 L Glucose 74 Calculated Osmolality 279 Calcium 8.9 Corrected Calcium 9.1 Phosphorus 3.2 Magnesium 1.9 Total Bilirubin 0.9 AST 27 ALT 31 Alkaline Phosphatase 91 Total Protein 6.3 Albumin 3.8 D Globulin 2.5 Albumin/Globulin Ratio 1.5 Triglycerides 107 Cholesterol 113 L LDL Cholesterol, Calc 65 HDL Cholesterol 27 L Cholesterol/HDL Ratio 4.2 Quality Measures Quality Measures VTE prophylaxis Assessment & Plan Assessment Current Active Medications: Generic Name Dose Route Start Last Admin Trade Name Freq PRN Reason Stop Dose Admin Acetaminophen 650 mg 07/05/25 09:25 Acetaminophen 325 Mg Tablet PO 08/04/25 09:24 Q6H PRN Fever >100.5 or pain 1-3 Hydrocodone Bitart/Acetaminophen 1 tab 07/05/25 09:31 07/06/25 10:27 Hydrocodone/Apap 5/325 Tablet PO 07/10/25 09:30 1 tab Q4HR PRN Administration PAIN SCALE 4-6 (Moderate Heparin Sodium (Porcine) 5,000 unit 07/05/25 21:00 07/06/25 08:35 Heparin Sod Inj 5000 Unit/Ml Vial SC 07/19/25 20:59 5,000 unit Q12HR CE Administration Ciprofloxacin/Dextrose 400 mg in 200 mls @ 200 mls/hr 07/05/25 09:00 07/06/25 08:34 Cipro Ivpb IV 07/12/25 08:59 200 mls/hr Q12HR CE Administration Metronidazole 500 mg in 100 mls @ 200 mls/hr 07/05/25 07:52 07/06/25 05:26 Flagyl 500 Mg Iv IV 07/12/25 07:51 200 mls/hr Q8HR CE Administration Morphine Sulfate 1 mg 07/05/25 09:31 Morphine Sulf Inj 10 Mg/Ml Vial IVP 07/10/25 09:30 Q2H PRN PAIN SCALE 7-10 (Severe Ondansetron HCl 4 mg 07/05/25 09:25 07/06/25 08:35 Ondansetron Inj 2 Mg/Ml Inj 2 Ml IVP 08/04/25 09:24 4 mg Q6H PRN Administration NAUSEA OR VOMITING Protocol Pantoprazole Sodium 40 mg 07/06/25 09:00 07/06/25 08:35 Pantoprazole Inj 40 Mg Vial IVP 08/05/25 08:59 40 mg QDAY CE Administration Plan Madisyn Young is a 34 year old female with a past medical history of DM, htn who presented with a chief complaint of abdominal pain. Patient was admitted for Diverticulitis #Acute diverticulitis with likely peridiverticular abscess #Intractable RLQ abdominal pain Suspecting diverticulitis vs ovarian cysts vs less likely UTI History of ovarian torsion and ovarian cysts CT Pelvis showed findings most consistent with acute diverticulitis involving sigmoid colon, small fluid collections of the pelvis, one in the cul-de-sac transverse dimension 2.8 cm and 1 in the posterior right pelvis 2.1 cm. US transvaginal showed Right ovary 4.0 cm arterial flow, 50 mm follicular cyst, Mild fluid in the cul-de-sac, No uterine mass or intrauterine gestation. In ED, given Morphine 6 mg IV x1, IV 1 L fluid bolus x1, meroenem 1,000 mg x1 - Surgery consulted, recommends that we admit the patient for IV antibiotics and if and abscesses develop to consult interventional radiology for drainage. - Flagyll 500 mg IV q8hr - Ciprofloxacin 400 mg IV q12hr - Pain controlled with acetaminophen, norco, morphine prn. - Nausea managed with prn zofran - blood/urine cultures pending #Urine toxicology Screen Positive Positive for opiates and fentanyl Patient denied taking any substance on admission. #Elevated Direct Bilirubin mild elevation Direct bilirubin 0.4, 07/06: TBili 0.9 (1.2) unknown etiology; may be related to diverticulitis or ovarian cysts #DM #HTN Patient states does not take medication for it anymore and has had good numbers since gastric sleeve 2 months ago. -will continue to monitor glucose and blood pressure Hospital Management: Disposition: Med Surg Diet: Clear Liquid GI Prophylaxis: Protonix 40 mg iv qd Bowel Prophylaxis: DVT Prophylaxis: heparin CODE STATUS: FULL CODE Patient plan of care was discussed with the attending physician, Dr. Sidhu & senior resident Dr. Yuki Welsh MD PGY-1 Attending Provider Attestation/Addendum I have discussed and was present for the essential components of the history, physical examination, diagnosis, and treatment plan with the resident. I agree with the patient's care as documented by the resident and amended herein by me. Tone Sidhu DO. Although this document has been carefully reviewed, there may still be some phonetic and other typographical errors. These errors are purely grammatical due to imperfections in the software program and should not be construed in any way to compromise the substance of the patient's medical care during this visit. Will continue IV antibiotics today, may repeat CT imaging tomorrow, general surgery consulted, patient may need drainage of possible peridiverticular abscess.
[2025-07-06 16:00] VITALS: BP 92/50; PULSE 62; RESP 18; TEMP 36.2; O2SAT 95
[2025-07-06] MEDS: KETOROLAC INJ 30 MG/ML VIAL IVP ×2 (17:01→23:49)
[2025-07-06 20:00] VITALS: BP 107/57; PULSE 60; RESP 17; TEMP 36.1; O2SAT 96
[2025-07-07] VITALS: BP 108/59; PULSE 58; RESP 17; TEMP 36.2; O2SAT 96
[2025-07-07 04:00] VITALS: BP 112/64; PULSE 56; RESP 17; TEMP 36.2; O2SAT 97
[2025-07-07] MEDS: metroNIDAZOLE/NS 500 MG IVPB 500 MG/100 ML BAG 200 MG IV ×3 (05:08→21:26)
[2025-07-07] MEDS: KETOROLAC INJ 30 MG/ML VIAL IVP ×2 (06:20→13:01)
[2025-07-07 06:25] LABS: Basophils # (Auto) 0.0 Thou/mm3 (0.0-0.2); Basophils % (Auto) 0 % (0-2.5); Eosinophils # (Auto) 0.2 Thou/mm3 (0.0-0.5); Eosinophils % (Auto) 4 % (0-10); Hematocrit 32.9 % (36.0-46.0); Hemoglobin 11.3 g/dL (12.0-16.0); Immature Granulocytes Auto 0.01 Thou/mm3 (0.00-0.00); Lymphocytes # (Auto) 2.0 Thou/mm3 (1.0-4.8); Lymphocytes % (Auto) 37 % (10-50); Mean Corpuscular HGB Conc 34.3 g/dl (31.0-37.0); Mean Corpuscular Hemoglobin 30.2 pg (25.0-35.0); Mean Corpuscular Volume 88 fL (80-100); Monocytes # (Auto) 0.4 Thou/mm3 (0.0-0.8); Monocytes % (Auto) 8 % (0-12); Neutrophils # (Auto) 2.7 Thou/mm3 (1.8-7.7); Neutrophils % (Auto) 51 % (37-80); Nucleated Red Blood Cell # 0.00 Thou/mm3 (0.00-0.00); Nucleated Red Blood Cell % 0 /100 WBC (0); Platelet Count 208 Thou/mm3 (140-440); RDW Standard Deviation 43.2 fL (36.4-46.3); Red Blood Count 3.74 Miln/mm3 (4.00-5.20); White Blood Count 5.4 Thou/mm3 (3.6-11.0)
[2025-07-07 06:51] LABS: Alanine Aminotransferase 18 U/L (10-49); Albumin, Serum 3.6 gm/dL (3.5-5.0); Albumin/Globulin Ratio 1.5 (1.2-2.2); Alkaline Phosphatase 83 U/L (46-116); Anion Gap 10 (7-16); Aspartate Amino Transferase 10 U/L (0-34); BUN/Creatinine Ratio 10 Ratio (12-20); Bilirubin,Total 0.4 mg/dL (0.3-1.2); Blood Urea Nitrogen < 5 mg/dL (9-23); Calcium 8.8 mg/dL (8.3-10.6); Calcium (Corrected) 9.1 mg/dL (8.5-10.1); Carbon Dioxide 25.2 mMol/L (20.0-31.0); Chloride 107 mMol/L (98-107); Creatinine (Component) 0.5 mg/dL (0.6-1.3); Estimated Creatinine Clearance 192.0 mL/min (>60); Globulin 2.4 gm/dL (2.3-3.5); Glucose 79 mg/dL (74-106); Magnesium 1.8 mg/dL (1.6-2.6); Osmolality,Calculated 279 (275-295); Phosphorous 3.2 mg/dL (2.4-5.1); Potassium 3.6 mMol/L (3.4-5.1); Sodium 142 mMol/L (136-145); Total Protein 6.0 gm/dL (5.7-8.2); eGFR > 60 See Note
--- NOTE | 2025-07-07 07:00 | XR_ITS ---
Examination: CT abdomen with intravenous contrast CT pelvis with intravenous contrast 2-D coronal reconstructions 2-D sagittal reconstructions Date and time of exam:July 07, 2025, 0936 hrs., Comparison July 05, 2025 Indications: Abdominal pain this week, acute diverticulitis with small fluid collections in the pelvis on CT abdomen pelvis July 05, 2025.. CTDI: vol (mGy) 25.3. DLP: (mGycm) 1508. Technique: Multiple axial sections of the abdomen and pelvis have been obtained. 64 slice high-resolution scanner used. 3 mm axial sections have been obtained, post intravenous injection 60 cc [id number]. 2-D sagittal, coronal reconstructions obtained. Low dose protocols were performed. One or more of the following dose reduction techniques were used; automated exposure control, adjustment of the mA and/or KV according to patient size, use of iterative reconstruction technique. Findings: Fatty infiltration throughout the liver, no focal liver or splenic lesions. No pancreatic mass. No renal or ureteral calculi, no hydronephrosis. Aorta normal size. Inflammation involving the sigmoid colon with irregular small fluid collection in the right pelvis which measures 5.7 x 2.8 cm with fluid also in the posterior pelvis in the cul-de-sac Bladder is contracted Impression: Acute inflammation in the sigmoid colon. Abscess collection in the pelvis which at this time is not amenable to catheter drainage, bowel is present in front of this abscess collection
[2025-07-07 08:00] VITALS: BP 106/63; PULSE 60; RESP 18; TEMP 36.2; O2SAT 98
[2025-07-07] MEDS: ONDANSETRON INJ 2 MG/ML INJ 2 ML 4 MG IVP ×2 (08:16→20:09)
[2025-07-07] MEDS: HEPARIN SOD INJ 5000 UNIT/ML VIAL SC ×2 (08:17→20:04)
[2025-07-07] MEDS: CIPROFLOXACIN/D5w 400 MG IVPB 400 MG/200 ML BAG 200 MG IV ×2 (08:17→20:04)
[2025-07-07 12:00] VITALS: BP 100/58; PULSE 52; RESP 18; TEMP 36.1; O2SAT 97
--- NOTE | 2025-07-07 14:28 | PD.RESPRO ---
Documentation for date of: 07/07/25 Subjective Subjective Interval history: Patient examined at bedside today. No acute overnight events. Patient reports that she is drinking more for clear liquid diet. She also says that she is having improvement in her abdominal pain. She is wondering when she can go home. She has not vomited. No other complaints at this time. Exam Vital Signs Temp Pulse Resp BP Pulse Ox O2 Del Method 96.9 F 52 L 18 100/58 L 97 Room Air 07/07/25 12:00 07/07/25 12:00 07/07/25 12:00 07/07/25 12:00 07/07/25 12:00 07/07/25 12:00 Narrative Exam General: No acute distress; A&Ox3 Skin: Warm, dry, intact, no obvious rash. HENT: NCAT, EOMI, not icteric. External ears normal. No rhinorrhea. Moist mucous membranes Cardiovascular: Regular rate and rhythm, no murmur, +S1/S2. Respiratory: Lungs CTAB GI: RLQ tenderness, no masses palpated, no erythema, no distension; No guarding or rebound tenderness. Extremities: no edema, no cyanosis, no clubbing. Extremity pulses present Neuro: No focal deficits observed. Conversant, moving all extremities. No overt cerebellar signs/incoordination. Psychiatric: Cooperative, appropriate affect. Objective Labs 07/07/25 05:47 07/07/25 05:47 Labs: Laboratory Results - last 24 hr 07/07/25 05:47 WBC 5.4 RBC 3.74 L Hgb 11.3 L Hct 32.9 L MCV 88 MCH 30.2 MCHC 34.3 RDW Std Deviation 43.2 Plt Count 208 Neut % (Auto) 51 Lymph % (Auto) 37 [place] % (Auto) 8 Eos % (Auto) 4 Baso % (Auto) 0 Neut # (Auto) 2.7 Lymph # (Auto) 2.0 [place] # (Auto) 0.4 Eos # (Auto) 0.2 Baso # (Auto) 0.0 Immature Gran # (Auto) 0.01 H Absolute Nucleated RBC 0.00 Immature Gran % 0 Nucleated RBC % 0 Sodium 142 Potassium 3.6 Chloride 107 Carbon Dioxide 25.2 Anion Gap 10 BUN < 5 L Creatinine 0.5 L Estim Creat Clear Calc 192.0 eGFR > 60 BUN/Creatinine Ratio 10 L Glucose 79 Calculated Osmolality 279 Calcium 8.8 Corrected Calcium 9.1 Phosphorus 3.2 Magnesium 1.8 Total Bilirubin 0.4 D AST 10 ALT 18 Alkaline Phosphatase 83 Total Protein 6.0 Albumin 3.6 Globulin 2.4 Albumin/Globulin Ratio 1.5 Quality Measures Quality Measures VTE prophylaxis Assessment & Plan Assessment Current Active Medications: Generic Name Dose Route Start Last Admin Trade Name Freq PRN Reason Stop Dose Admin Acetaminophen 650 mg 07/05/25 09:25 Acetaminophen 325 Mg Tablet PO 08/04/25 09:24 Q6H PRN Fever >100.5 or pain 1-3 Hydrocodone Bitart/Acetaminophen 1 tab 07/05/25 09:31 07/06/25 10:27 Hydrocodone/Apap 5/325 Tablet PO 07/10/25 09:30 1 tab Q4HR PRN Administration PAIN SCALE 4-6 (Moderate Heparin Sodium (Porcine) 5,000 unit 07/05/25 21:00 07/07/25 08:17 Heparin Sod Inj 5000 Unit/Ml Vial SC 07/19/25 20:59 5,000 unit Q12HR CE Administration Ciprofloxacin/Dextrose 400 mg in 200 mls @ 200 mls/hr 07/05/25 09:00 07/07/25 08:17 Cipro Ivpb IV 07/12/25 08:59 200 mls/hr Q12HR CE Administration Metronidazole 500 mg in 100 mls @ 200 mls/hr 07/05/25 07:52 07/07/25 13:01 Flagyl 500 Mg Iv IV 07/12/25 07:51 200 mls/hr Q8HR CE Administration Ketorolac Tromethamine 30 mg 07/06/25 16:41 07/07/25 13:01 Ketorolac Inj 30 Mg/Ml Vial IVP 07/11/25 16:40 30 mg Q6HR PRN Administration breakthrough pain or pain 7-10 Morphine Sulfate 1 mg 07/05/25 09:31 Morphine Sulf Inj 10 Mg/Ml Vial IVP 07/10/25 09:30 Q2H PRN PAIN SCALE 7-10 (Severe Ondansetron HCl 4 mg 07/05/25 09:25 07/07/25 08:16 Ondansetron Inj 2 Mg/Ml Inj 2 Ml IVP 08/04/25 09:24 4 mg Q6H PRN Administration NAUSEA OR VOMITING Protocol Pantoprazole Sodium 40 mg 07/06/25 09:00 07/07/25 08:17 Pantoprazole Inj 40 Mg Vial IVP 08/05/25 08:59 40 mg QDAY CE Administration Plan Assessment Madisyn Young is a 34 year old female with a past medical history of DM, htn who presented who is currently admitted for Acute diverticulitis with abscess #Acute diverticulitis with likely peridiverticular abscess Repeat CT scan shows abscess in the right pelvis which measures 5.7 x 2.8 cm with fluid and acute inflammation in the sigmoid colon, which is slightly improved from previous CT Abscess collection in the pelvis not amendable to catheter drainage at this time Spoke with general surgeon who also agrees that size of abscess is not amendable to surgical drainage at this time and to continue with IV antibiotics Plan: ? General Surgery consulted, appreciate recommendations ? Continue IV ciprofloxacin 500 mg daily ? Continue IV Flagyl 500 mg every 8 hours ? Multimodal pain management ? Antiemetics ? Advance diet as tolerated #Morbid obesity #Non insulin type II Diabetes mellitus Type, IDDM, NIDDM Plan: ? Sliding scale insulin ? Hypoglycemic protocol in place ? Blood sugar checks with meals #Urine toxicology Screen Positive Positive for opiates and fentanyl Patient denied taking any substance on admission. #Elevated Direct Bilirubin, resolved #Health Maintenance Disposition: Med/Surg DVT prophylaxis: Heparin GI prophylaxis: Protonix Diet: Clear Liquid CODE STATUS: Full Code Patient seen and care discussed with my attending physician, Dr. Nahum Mirza, PGY-2 Attending Provider Attestation/Addendum I have discussed and was present for the essential components of the history, physical examination, diagnosis, and treatment plan with the resident. I agree with the patient's care as documented by the resident and amended herein by me. Tone Sidhu DO. Although this document has been carefully reviewed, there may still be some phonetic and other typographical errors. These errors are purely grammatical due to imperfections in the software program and should not be construed in any way to compromise the substance of the patient's medical care during this visit. Patient seen and evaluated this AM. Subjectively the patient feels slightly better today with improved nausea and pain. CT abdomen and pelvis performed today still demonstrating abscess in the pelvis which is not amenable to IR drainage, the patient's sigmoid colon is also inflamed. General surgery was consulted previously, will reach out for additional recommendations. As of now we will continue ciprofloxacin and Flagyl.
[2025-07-07] MEDS: SODIUM CHLORIDE 0.9% 1000 ML 1,000 ML 999 ML IV (15:02)
[2025-07-07 16:00] VITALS: BP 115/70; PULSE 56; RESP 18; TEMP 36.1; O2SAT 100
[2025-07-07 20:00] VITALS: BP 110/71; PULSE 52; RESP 18; TEMP 36.1; O2SAT 98
[2025-07-08] VITALS: BP 109/59; PULSE 59; RESP 16; TEMP 36.2; O2SAT 98
[2025-07-08 04:00] VITALS: BP 119/65; PULSE 52; RESP 18; TEMP 36.6; O2SAT 94
[2025-07-08] MEDS: metroNIDAZOLE/NS 500 MG IVPB 500 MG/100 ML BAG 200 MG IV (05:32)
[2025-07-08 06:23] LABS: Basophils # (Auto) 0.0 Thou/mm3 (0.0-0.2); Basophils % (Auto) 0 % (0-2.5); Eosinophils # (Auto) 0.2 Thou/mm3 (0.0-0.5); Eosinophils % (Auto) 3 % (0-10); Hematocrit 32.0 % (36.0-46.0); Hemoglobin 11.1 g/dL (12.0-16.0); Immature Granulocytes Auto 0.01 Thou/mm3 (0.00-0.00); Lymphocytes # (Auto) 1.7 Thou/mm3 (1.0-4.8); Lymphocytes % (Auto) 33 % (10-50); Mean Corpuscular HGB Conc 34.7 g/dl (31.0-37.0); Mean Corpuscular Hemoglobin 30.3 pg (25.0-35.0); Mean Corpuscular Volume 87 fL (80-100); Monocytes # (Auto) 0.3 Thou/mm3 (0.0-0.8); Monocytes % (Auto) 5 % (0-12); Neutrophils # (Auto) 2.9 Thou/mm3 (1.8-7.7); Neutrophils % (Auto) 58 % (37-80); Nucleated Red Blood Cell # 0.00 Thou/mm3 (0.00-0.00); Nucleated Red Blood Cell % 0 /100 WBC (0); Platelet Count 236 Thou/mm3 (140-440); RDW Standard Deviation 41.3 fL (36.4-46.3); Red Blood Count 3.66 Miln/mm3 (4.00-5.20); White Blood Count 5.0 Thou/mm3 (3.6-11.0)
[2025-07-08] MEDS: KETOROLAC INJ 30 MG/ML VIAL IVP (06:41)
[2025-07-08 06:59] LABS: Alanine Aminotransferase 16 U/L (10-49); Albumin, Serum 3.6 gm/dL (3.5-5.0); Albumin/Globulin Ratio 1.6 (1.2-2.2); Alkaline Phosphatase 85 U/L (46-116); Anion Gap 12 (7-16); Aspartate Amino Transferase 12 U/L (0-34); BUN/Creatinine Ratio 10 Ratio (12-20); Bilirubin,Total 0.4 mg/dL (0.3-1.2); Blood Urea Nitrogen < 5 mg/dL (9-23); Calcium 8.8 mg/dL (8.3-10.6); Calcium (Corrected) 9.1 mg/dL (8.5-10.1); Carbon Dioxide 22.6 mMol/L (20.0-31.0); Chloride 106 mMol/L (98-107); Creatinine (Component) 0.5 mg/dL (0.6-1.3); Estimated Creatinine Clearance 192.0 mL/min (>60); Globulin 2.2 gm/dL (2.3-3.5); Glucose 78 mg/dL (74-106); Magnesium 1.7 mg/dL (1.6-2.6); Osmolality,Calculated 277 (275-295); Phosphorous 3.2 mg/dL (2.4-5.1); Potassium 3.4 mMol/L (3.4-5.1); Sodium 141 mMol/L (136-145); Total Protein 5.8 gm/dL (5.7-8.2); eGFR > 60 See Note
[2025-07-08 07:30] VITALS: BP 110/68; PULSE 60; RESP 18; TEMP 36.6; O2SAT 97
[2025-07-08] MEDS: CIPROFLOXACIN/D5w 400 MG IVPB 400 MG/200 ML BAG 200 MG IV (08:44)
[2025-07-08] MEDS: HEPARIN SOD INJ 5000 UNIT/ML VIAL SC (08:45)
[2025-07-08 11:58] VITALS: BP 115/67; PULSE 54; RESP 18; TEMP 36.4; O2SAT 97
--- NOTE | 2025-07-08 13:12 | PD.RESDS ---
Planned Discharge Date 07/08/25 DS: Providers Provider Date of admission: 07/05/25 07:40 Primary care physician: KIMMY Schwarz Admitting Provider: Silvano Sidhu DO Attending Provider on Admission: Silvano Sidhu DO Consults: 07/05/25 06:24 Consult to General Surgery Stat Comment: diverticulitis, abscess Consulting Provider: Gamaliel Flores Attending Provider on DC: Silvano Sidhu DO Discharging Provider: Silvano Sidhu DO DS: Diagnosis Problem List Completed Was Problem List Reviewed/Reconciled?: Yes Hospital Course Hospital Course Hospital course: Madisyn Young is a 34 year old female with a PMHx of Non-insulin dependent type II DM, and HTN who was admitted to [facility] on July 05, 2025 for acute diverticulitis with peridiverticular abscess that was managed by IV antibiotics. Initial vitals were 97.4 F, 74 HR, 17 RR, 121/90 BP, 96%O2 RA. Labs significant for WBC 8.1, Hgb 12.4, Direct Bili 0.4, Lipase negative, Beta-HCG negative, UA showed 25 wbc, LE pos; Utox pos for opiates, fentanyl. Imaging included CT Pelvis showing acute diverticulitis involving sigmoid colon with small fluid collections 2.8 and 2.1 cm, unamenable to drainage. In the ED, patient was given Ketorolac, Morphine, 1 L IV fluid bolus, Meropenem 1000 mg IV x1 and Metronidazole 500 mg IV q8hr. Medicine was consulted and pt was admitted to the floors. While on the floors, general surgery, Dr. Manzano, was consulted who had recommended IV abx as surgical intervention was not medically necessary at the time due to the size of the fluid collections. Pt had repeat CT abd pelvis as well which showed 5.7 x 2.8 cm fluid collection not amendable to drainage. Patient was continue with IV antibiotics and multimodal pain management. Patient continued to improve, tolerated liquid and solid food diet. Patient was told to consider surgical intervention in the setting if there was possible future recurrent diverticulitis infections with abscesses. Patient was then medically cleared for discharge with the following instructions listed below. Discharge instructions Follow-up with your PCP within 1 week Take your antibiotics, Ciprofloxacin and Metronidazole as prescribed Take your medicines as prescribed Return to ED if your symptoms worsen or return Problem List: #Acute diverticulitis with likely peridiverticular abscess #Morbid obesity #Non insulin type II Diabetes mellitus #Urine toxicology Screen Positive #Elevated Direct Bilirubin, resolved Discharge summary was reviewed with my attending Dr. Nahum Mirza, PGY-2 Time Spent with Patient Time attestation: Total time spent providing and/or coordinating discharge services: Time spent: Greater than 30 minutes Exam Vital Signs Temp Pulse Resp BP Pulse Ox O2 Del Method 97.5 F 54 L 18 115/67 97 Room Air 07/08/25 11:58 07/08/25 11:58 07/08/25 11:58 07/08/25 11:58 07/08/25 11:58 07/08/25 11:58 Narrative Exam General: No acute distress; A&Ox3 Skin: Warm, dry, intact, no obvious rash. HENT: NCAT, EOMI, not icteric. External ears normal. No rhinorrhea. Moist mucous membranes Cardiovascular: Regular rate and rhythm, no murmur, +S1/S2. Respiratory: Lungs CTAB GI: RLQ tenderness, no masses palpated, no erythema, no distension; No guarding or rebound tenderness. Extremities: no edema, no cyanosis, no clubbing. Extremity pulses present Neuro: No focal deficits observed. Conversant, moving all extremities. No overt cerebellar signs/incoordination. Psychiatric: Cooperative, appropriate affect. Discharge Plan Plan Patient Disposition: HOME (Self Care) Patient condition on transfer: Stable Care Plan Goals: Discharge instructions Follow-up with your PCP within 1 week Take your antibiotics, Ciprofloxacin and Metronidazole as prescribed Take your medicines as prescribed Return to ED if your symptoms worsen or return Prescriptions/Referrals Prescriptions/Med Rec: New acetaminophen-codeine 300-30 mg tablet 2 tab PO Q8H MDD 6 PRN (Reason: pain) Qty: 20 0RF ondansetron 4 mg tablet,disintegrating 4 mg PO TID PRN (Reason: nausea and vomiting) 30 Days Qty: 10 0RF metronidazole 500 mg tablet 500 mg PO Q8H 7 Days Qty: 21 0RF Rx Instructions: Take one tablet by mouth three times a day ciprofloxacin HCl 500 mg tablet 500 mg PO BID 7 Days Qty: 14 0RF Rx Instructions: Take one tablet by mouth twice a day Continued hydrocodone-acetaminophen 5-325 mg tablet 1 tab PO Q6H MDD 4 PRN (Reason: pain) Qty: 20 0RF Ozempic 1 mg/dose (4 mg/3 mL) Pen Injector 1 mg SUBCUT QWEEK Discontinued ibuprofen 800 mg tablet 800 mg PO TID PRN (Reason: pain) Qty: 30 0RF sucralfate [Carafate] 100 mg/mL suspension 10 ml PO TID PRN (Reason: acid reflux) Qty: 473 0RF ondansetron 4 mg tablet,disintegrating 4 mg PO Q8H PRN (Reason: nausea and vomiting) Qty: 14 0RF hydrocodone-acetaminophen 5-325 mg tablet 1 tab PO BID MDD 10 PRN (Reason: pain) Qty: 10 0RF ciprofloxacin HCl 500 mg tablet 500 mg PO BID 7 Days Qty: 14 0RF Referrals: Heather Guerin FNP [Primary Care Provider] - Patient/Caregiver Discharge Instructions Discharge Activity: activity as tolerated Education Materials: Diverticulosis Diverticulitis, Discharge Instructions for ... Print Language: Stateless Stand Alone Forms: Rachel Award Info., Patient Portal Info Letter Discharge Order Discharge Orders: Discharge (Routine); Ordered 07/08/25 Ordered By: Nicole Mirza Quality Discharge Quality Measures VTE prophylaxis (Heparin) Attestestation MD Attestation I have discussed and was present for the essential components of the discharge history, physical examination, diagnosis, and discharge treatment plan with the resident. I agree with the patient's discharge care as documented by the resident and amended herein by me. Tone Sidhu DO. Patient much improved on day of discharge, did have a bowel movement, tolerating p.o. intake. Patient has been on IV Cipro and Flagyl inpatient, will transition to p.o. Cipro and Flagyl for a total 10-day course to include what she has gotten here already. The patient wants to go home however I did emphasize that if her symptoms worsen or persist, to return to the emergency department for further evaluation. The patient understood all discharge instructions, all questions were answered satisfactorily. The patient was instructed to return to the Emergency Department is symptoms worsened or persisted. Although this document has been carefully reviewed, there may still be some phonetic and other typographical errors. These errors are purely grammatical due to imperfections in the software program and should not be construed in any way to compromise the substance of the patient's medical care during this visit.
--- NOTE | 2025-07-10 08:18 | ESCONSULT_ITS ---
RE: AKHIL JAFFE : 1990 DATE OF CONSULTATION: 07/05/2025 HISTORY OF PRESENT ILLNESS: This patient is a 34-year-old female, who was seen because of diverticulitis. The patient was in her usual health until a couple of days ago when she started having pain over the lower portion of the abdomen. The patient denies any history of nausea or vomiting. The patient has multiple medical problems including hypertension, diabetes mellitus, and morbid obesity. The patient has undergone bypass surgery recently and lost about 40 pounds. Past surgery consisted of appendectomy, cholecystectomy, and gastric sleeve 2 months ago. The pain was located in the lower abdomen. PHYSICAL EXAMINATION: GENERAL: Revealed an obese female, who appeared to be in a stated age. VITAL SIGNS: Normal with normal pulse rate. ABDOMEN: Showed this to be very protuberant due to her obesity. The patient had surgical scar in the abdomen from laparoscopic sleeve resection. Examination showed tenderness in the lower portion of the abdomen and suprapubic region as well as over the right lower quadrant. She did not have any peritoneal signs like rigidity or guarding. Bowel sounds were hypoactive. Rectal deferred. LABORATORY WORKUP: The patient had a CT scan of the abdomen in the emergency room, which showed consistent with acute diverticulitis involving sigmoid colon. In addition to this, there are small fluid collections in the pelvis on the cul-de-sac, which was 2.8 cm in diameter. The patient also had transvaginal ultrasound, which was normal. The patient's past medical history revealed that she has had similar problems last year, for which she underwent laparoscopic evaluation of the cyst from the ovary and detorsion of the twisted ovarian cyst. ASSESSMENT: 1. Acute diverticulitis, probably because of curved sigmoid causing pain on the right side and suprapubic area. 2. Moderate obesity. 3. Diabetes mellitus. 4. Hypertension. RECOMMENDATIONS: The patient does not require any surgical intervention. I would admit the patient and give her antibiotics. I am not sure she has definite abscess; even though today, radiologist read an abscess. This will respond to IV antibiotics and patient can be discharged. DT: 22:49:27 TT: 23:54:00 Ref: [id number] - TID: [id number]
== END 2025-07-08 13:10 | disposition home or self-care (01) | DRG 532 ==
LOC: SERX 06:05 → SERHOLD 07:58 → S3NX 18:00
PROVIDERS: Emergency Medicine; Admitting Provider Student in an Organized Health Care Education/Training Program; Emergency Provider Emergency Medicine; PCP Nurse Practitioner; Visit Provider Student in an Organized Health Care Education/Training Program
DX: N83.201 Unspecified ovarian cyst, right side (principal); K21.9 Gastro-esophageal reflux disease without esophagitis; F41.9 Anxiety disorder, unspecified; E11.9 Type 2 diabetes mellitus without complications; I10 Essential (primary) hypertension; K57.20 Diverticulitis of large intestine with perforation and abscess without bleeding; E66.01 Morbid (severe) obesity due to excess calories; Z68.42 Body mass index [BMI] 45.0-49.9, adult; R11.0 Nausea; E80.6 Other disorders of bilirubin metabolism; Z79.4 Long term (current) use of insulin; Z79.84 Long term (current) use of oral hypoglycemic drugs; Z88.1 Allergy status to other antibiotic agents
CPT/HCPCS: 36415; 72193; 74177; 76830; 80053; 80061; 80307; 81001; 82248; 83690; 83735; 84100; 84702; 85025; 85610; 85730; 86901; 87040; 87086; 99281; A4649; J0744; J1644; J1885; J2185; J2270; J2405; J2470; J3480; J3490; J7030; J7050; Q9967; A9270; J1836